=== PATIENT | female | born 1940 ===

== ENCOUNTER 2020-07-08 16:02 | Outpatient (CLI) | payer MEDICARE, SELFPAY ==
--- NOTE | ~2020-07-08 | MM_ITS ---
EXAMINATION: MM screening cammy RT w rojelio HISTORY: Screening right mammogram, history of left mastectomy TECHNIQUE: Craniocaudal and mediolateral oblique 3-D tomosynthesis images were obtained and synthetic 2-D images were generated. CAD analysis was submitted and interpreted. COMPARISON: 06/18/2019, 06/07/2018, 04/15/2017 BREAST PARENCHYMAL COMPOSITION: The breasts are heterogeneously dense, which may obscure small masses . FINDINGS: Scattered benign-appearing calcifications are present. There is no evidence of suspicious m ass, calcification, or architectural distortion to suggest malignancy. There has been no suspicious i nterval change. IMPRESSION: 1. No mammographic evidence of malignancy. 2. Recommend routine screening mammography in one year. BI-RADS Category 2: Benign finding(s). Reviewed, dictated and finalized at location A. 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
== END 2020-07-08 16:03 | disposition home or self-care (01) ==
LOC: ANHIMG 16:08
PROVIDERS: PCP Internal Medicine; Visit Provider Internal Medicine Medical Oncology
DX: Z12.31 Encounter for screening mammogram for malignant neoplasm of breast (principal); C50.312 Malignant neoplasm of lower-inner quadrant of left female breast; Z17.0 Estrogen receptor positive status [ER+]
CPT/HCPCS: 77063; 77067

== ENCOUNTER 2020-07-31 09:12 | Inpatient (IN) | payer MEDICARE, SELFPAY ==
[2020-07-31] VITALS (9 sets, daily range): BP systolic 107–144; BP diastolic 51–73; PULSE 69–88; RESP 13–22; TEMP 35.7–36.7; O2SAT 89–100; BMI 21.9
--- NOTE | ~2020-07-31 | CT_ITS ---
EXAMINATION: CT abdomen pelvis w con DATE: 07/31/2020 11:44 INDICATION: Lower abdominal pain and bloating. TECHNIQUE: Computed tomography (CT) of the abdomen and pelvis was performed with 100 cc Omnipaque 350 intravenous contrast. The dose-length product was 351.44 mGy-cm. Automated exposure control and iter ative reconstruction technique were employed. COMPARISON: CT dated 12/23/2013. FINDINGS: Bibasilar atelectasis. No significant pleural or pericardial effusion. Heart size is normal . The liver, spleen, pancreas, adrenal glands and left kidney are unremarkable. 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 Gallbladder is distended. There are di lated small bowel loops with areas of focal small bowel wall thickening and air-fluid levels. There a re phlegmonous changes in the right mid abdomen adjacent to the cecum. The appendix is mildly thicken ed and enhancing with no free fluid in the periappendiceal region, suspicious for acute appendicitis. There are calcifications in the appendix, consistent with appendicoliths. IMPRESSION: 1. Acute appendicitis with thickening of the adjacent cecum and small bowel, likely reactive. Dilated small bowel loops are present with air-fluid levels which may relate to ileus or partial obstruction . Reviewed, dictated and finalized at location A. R OPS PLANNER IMPRESSION: 1. Acute appendicitis with thickening of the adjacent cecum and small bowel, li maulik reactive. Dilated small bowel loops are present with air-fluid levels whic h may relate to ileus or partial obstruction.
--- NOTE | ~2020-07-31 | XR_ITS ---
XR chest 1V portable 08/01/2020 11:46 Indication: Hyponatremia Procedure: AP portable chest Comparison: 07/31/2020 Findings: Heart size normal. Bibasilar atelectasis. No focal pneumonia, edema, pleural effusion or pn eumothorax. There are calcified granulomas in the left lower lung zone. There is kady consistent w ith left axillary lymph node dissection. Impression: 1: Bibasilar atelectasis. Reviewed, dictated and finalized at location A. GRINDER Impression: 1: Bibasilar atelectasis.
--- NOTE | ~2020-07-31 | XR_ITS ---
EXAMINATION: XR chest 1V portable 07/31/2020 11:23 INDICATION: Cough PROCEDURE: AP portable chest COMPARISON: No prior studies for comparison. FINDINGS: There is focal infiltrate of the left midlung zone. The cardiomediastinal silhouette is wit hin normal limits. There are no pleural effusions. There is no pneumothorax suspected. IMPRESSION: 1: Focal infiltrate left mid lung zone which may represent atelectasis/scarring or less likely devel oping pneumonia.. Reviewed, dictated and finalized at location A. ROASTER IMPRESSION: 1: Focal infiltrate left mid lung zone which may represent atelectasis/scarrin g or less likely developing pneumonia..
--- NOTE | ~2020-07-31 | XR_ITS ---
XR barium swallow DATE: 08/03/2020 13:46 INDICATION: Dysphagia. Difficulty swallowing in the right cervical area TECHNIQUE: Fluoroscopy, rapid sequence spot radiograph and overhead radiographs during swallowing of 300 cc barium contrast material. 0.8 minutes fluoroscopy time DAP: 5.47 COMPARISON: None FINDINGS: Deglutition appears prompt and normal. No stricture, mucosal fold thickening, erosion, ulce ration or intraluminal mass lesion of the esophagus is detected. There are couple of small diverticula of the distal esophagus. Small sliding hiatal hernia. IMPRESSION: Small sliding hiatal hernia Small distal esophageal diverticula Reviewed, dictated and finalized at Location A. Reviewed, dictated and finalized at location A. MIXER ASSEMBLER
[2020-07-31 10:27] LABS: Basophils Absolute Auto 0.1 K/mm3 (0.0-0.1); Basophils Percent Auto 0.3 % (0.2-1.2); Eosinophils Percent Auto 0.1 % (0-4.4); Hematocrit 38.3 % (37.0-47.0); Hemoglobin 13.1 g/dL (12.0-15.0); Immature Granulocyte Percent A 0.5 % (0-0.5); Lymphocytes Percent Auto 4.5 % (18.3-44.2); Mean Corpuscular HGB Conc 34.2 g/dl (32-36); Mean Corpuscular Hemoglobin 29.7 pg (26-34); Mean Corpuscular Volume 86.8 fl (80-100); Monocytes Absolute Auto 0.7 K/mm3 (0.1-0.6); Monocytes Percent Auto 3.7 % (2.6-8.5); Neutrophils Percent Auto 90.9 % (45.5-73.1); Platelet Count Result 297 k/mm3 (150-375); Red Blood Count 4.41 M/mm3 (4.2-5.4); Red Cell Distribution Width 12.9 % (11.5-14.5); White Blood Count 19.8 K/mm3 (4.5-10.0)
[2020-07-31 10:43] LABS: Alanine Aminotransferase 17 U/L (4-35); Albumin Level 4.2 g/dL (3.5-5.1); Alkaline Phosphatase 101 U/L (38-126); Anion Gap 10 mmol/L (8-16); Aspartate Amino Transferase 29 U/L (14-36); Bilirubin,Total 0.8 mg/dL (0.2-1.3); Blood Urea Nitrogen 19 mg/dL (7-17); Calcium 9.7 mg/dL (8.4-10.2); Carbon Dioxide 26 mmol/L (22-30); Chloride 90 mmol/L (98-107); Estimated CRCL calculation 35 ml/min; Estimated Glomerular Filt Rate 48; Glucose 118 mg/dL (65-105); Lipase 25 U/L (23-300); Potassium 4.3 mmol/L (3.4-5.0); Sodium 126 mmol/L (137-145)
--- NOTE | 2020-07-31 11:15 | PC.NURSE ---
received report from Kellie GROSS. patient here with urinary symptoms. see initial note. alert. resting on stretcher. patient did ambulate to restroom but unable to void. Tech did straight cath. 100ml of urine out. specimen sent to lab. provider aware.
--- NOTE | 2020-07-31 11:32 | PC.NURSE ---
patient in CT now.
[2020-07-31 11:33] LABS: Add Urine Microscopic? YES; Appearance Urine Clear (Clear); Bilirubin Urine Negative (Negative); Blood Urine Negative (Negative); Color Urine Yellow (Yellow); Glucose Urine UA Negative (Negative); Hyaline Casts Urine 50+ /lpf; Ketones Urine Trace mg/dL (Negative); Leukocyte Esterase Ur Negative LEU/UL (Negative); Mucus Urine Few /lpf; Nitrate Urine Negative (Negative); Protein Urine 2+ mg/dL (Negative); RBC Urine 0-2 /hpf (0-2); Specific Grav Ur 1.021 (1.001-1.035); Squamous Epithelial Cell Urine Rare /hpf (Few); Urobilinogen Urine Negative mg/dL (<2.0); WBC Urine 0-3 /hpf
[2020-07-31] MEDS: SODIUM CHLORIDE 0.9% IV 1,000 ML 999 ML IV CONT (11:45)
[2020-07-31] MEDS: FAMOTIDINE 20 MG/2 ML VIAL IV PUSH (11:46)
[2020-07-31] MEDS: ONDANSETRON INJ 4 MG/2 ML VIAL IV PUSH (11:46)
--- NOTE | 2020-07-31 12:25 | ED.GENADULT ---
HPI - General Adult General Chief complaint: Abdominal Pain <MERLINE [place] Last Filed: 07/31/20 13:16> Stated complaint: abd pain <MERLINE [place] Last Filed: 07/31/20 13:16> Time Seen by Provider: 07/31/20 10:03 <MERLINE [place] Last Filed: 07/31/20 13:16> Source: patient <MERLINE [place] Last Filed: 07/31/20 13:16> Mode of arrival: ambulatory <MERLINE [place] Last Filed: 07/31/20 13:16> Limitations: no limitations <MERLINE [place] Last Filed: 07/31/20 13:16> History of Present Illness HPI narrative: Patient is a 80-year-old female who presents to emergency department for evaluation of abdominal pain that has been present for roughly 2 months and gradually worsened today feeling distended and increasing pain in the abdomen with nausea patient denies similar occurrence in the past injury trauma recent illness. Patient notes she had normal bowel movements yesterday and has had some difficulty urinating today <Massimo Sweeney PA-C - Last Filed: 07/31/20 13:16> Related Data Home medications: Home Medications Medication Instructions Recorded Confirmed amlodipine 10 mg PO DAILY 07/31/20 07/31/20 lisinopril 40 mg PO DAILY 07/31/20 07/31/20 nebivolol [Bystolic] 10 mg PO DAILY 07/31/20 07/31/20 <MERLINE [place] Last Filed: 07/31/20 13:16> Allergies/adverse reactions: Allergies Allergy/AdvReac Type Severity Reaction Status Date / Time No Known Allergies Allergy Unverified 11/12/13 08:16 <MERLINE [place] Last Filed: 07/31/20 13:16> Review of Systems Review of Systems: All systems reviewed & are unremarkable except as noted in HPI and below <Massimo Sweeney PA-C - Last Filed: 07/31/20 13:16> PMFSH Past Medical History Medical History: Medical History Anxiety Back pain Breast cancer HTN (hypertension) <MERLINE [place] Last Filed: 07/31/20 13:16> Surgical History Surgical History: Surgical History History of hysterectomy <MERLINE [place] Last Filed: 07/31/20 13:16> Family History Family History: Family History Other Hypertension <MERLINE [place] Last Filed: 07/31/20 13:16> Social History Social History: Social History Smoking status: Current every day smoker Alcohol intake: never <MERLINE [place] Last Filed: 07/31/20 13:16> Exam Narrative: Exam Narrative: GENERAL: Well-appearing, well-nourished, and in no acute distress. HEAD: Normocephalic, atraumatic. EYES: PERRLA and EOMI. ENT: Nares clear, no rhinorrhea or epistaxis. Mucous membranes moist. CHEST: Clear to auscultation. No respiratory distress. No wheezes rales or rhonchi HEART: Regular rate and rhythm. No murmur heard. Normal peripheral pulses. ABDOMEN: Soft, tenderness throughout the abdomen with guarding in the lower quadrants, distended EXTREMITIES: Normal range of motion. No edema. SKIN: Warm, dry, no rash. NEURO: No focal deficits. Alert and oriented x3. Cranial nerves II through XII grossly intact PSYCH: Normal mood and affect. <MERLINE Boston Last Filed: 07/31/20 13:16> Course Course Emergency Course: Patient found to have appendicitis will be sent to the OR was given fluids and medications and antibiotics in the emergency department hemodynamically stable with ABCs intact <MERLINE Boston Last Filed: 07/31/20 13:16> BANDER AND CELLOPHANER MACHINE/PA Physician Supervision For this patient encounter, I reviewed the BANDER AND CELLOPHANER MACHINE or PA documentation, treatment plan, and medical decision making; and I had [id number] time with this patient. Patient presented for 2 months of abdominal bloating and 2 days of right lower abdominal pain .
--- NOTE | 2020-07-31 13:10 | WPDANESEPP ---
Anes - Eval Pre Procedure Procedure: Laparoscopic appendectomy Date/Time: 07/31/20 13:10 Surgeon: Vic Preop Diagnosis: acute appendicitis Pre Op Diagnosis: appendicitis Patient Data Age: 80 Gender: F Height: 1.7 m Weight: 58.9 kg Last Vital Signs Temp 35.7 C L 07/31/20 09:16 Pulse 88 07/31/20 09:16 Resp 18 07/31/20 09:16 BP 144/73 H 07/31/20 09:16 Pulse Ox 98 07/31/20 09:16 Allergies Allergy/AdvReac Type Severity Reaction Status Date / Time No Known Allergies Allergy Unverified 11/12/13 08:16 Laboratory Tests 07/31/20 07/31/20 07/31/20 10:19 10:19 11:05 WBC 19.8 K/mm3 H K/mm3 (4.5-10.0) RBC 4.41 M/mm3 M/mm3 (4.2-5.4) Hgb 13.1 g/dL g/dL (12.0-15.0) Hct 38.3 % % (37.0-47.0) MCV 86.8 fl fl (80-100) MCH 29.7 pg pg (26-34) MCHC 34.2 g/dl g/dl (32-36) RDW 12.9 % % (11.5-14.5) Plt Count 297 k/mm3 k/mm3 (150-375) MPV 9.0 fl fl (7.4-10.4) Immature Gran % (Auto) 0.5 % % (0-0.5) Neut % (Auto) 90.9 % H % (45.5-73.1) Lymph % (Auto) 4.5 % L % (18.3-44.2) [place] % (Auto) 3.7 % % (2.6-8.5) Eos % (Auto) 0.1 % % (0-4.4) Baso % (Auto) 0.3 % % (0.2-1.2) Lymph # (Auto) 0.90 K/mm3 K/mm3 (0.9-3.2) [place] # (Auto) 0.7 K/mm3 H K/mm3 (0.1-0.6) Eos # (Auto) 0.0 K/mm3 K/mm3 (0-0.3) Baso # (Auto) 0.1 K/mm3 K/mm3 (0.0-0.1) Abs Immat Gran (auto) 0.10 K/mm3 H K/mm3 (0.00-0.031) Absolute Neuts (auto) 18.0 K/mm3 H K/mm3 (1.3-6.7) Absolute Nucleated RBC 0.0 K/mm3 K/mm3 (0.0-0.012) Nucleated RBC % 0.0 % % (0.0-0.2) Sodium 126 mmol/L L mmol/L (137-145) Potassium 4.3 mmol/L mmol/L (3.4-5.0) Chloride 90 mmol/L L mmol/L (98-107) Carbon Dioxide 26 mmol/L mmol/L (22-30) Anion Gap 10 mmol/L mmol/L (8-16) BUN 19 mg/dL H mg/dL (7-17) Creatinine 1.10 mg/dL H mg/dL (0.7-1.0) Estim Creat Clear Calc 35 ml/min ml/min Estimated GFR 48 L (59 - ) Glucose 118 mg/dL H mg/dL (65-105) Calcium 9.7 mg/dL mg/dL (8.4-10.2) Total Bilirubin 0.8 mg/dL mg/dL (0.2-1.3) AST 29 U/L U/L (14-36) ALT 17 U/L U/L (4-35) Alkaline Phosphatase 101 U/L U/L (38-126) Total Protein 8.0 g/dL g/dL (6.3-8.2) Albumin 4.2 g/dL g/dL (3.5-5.1) Lipase 25 U/L U/L (23-300) Urine Color Yellow (Yellow) Urine Appearance Clear (Clear) Urine pH 5.0 (5.0-9.0) Ur Specific [place] 1.021 (1.001-1.035) Urine Protein 2+ mg/dL H mg/dL (Negative) Urine Glucose (UA) Negative mg/dL mg/dL (Negative) Urine Ketones Trace mg/dL mg/dL (Negative) Ur Blood (Man) Negative (Negative) Urine Nitrate Negative (Negative) Urine Bilirubin Negative (Negative) Urine Urobilinogen Negative mg/dL mg/dL (<2.0) Leukocyte Esterase Rfl Negative MALATHI/UL MALATHI/UL (Negative) Urine RBC 0-2 /hpf /hpf (0-2) Urine WBC 0-3 /hpf /hpf Ur Squamous Epith Cells Rare /hpf /hpf (Few) Hyaline Casts 50+ /lpf H /lpf (None) Urine Mucus Few /lpf H /lpf Patient hx anesthesia problems: none Family hx anesthesia problems: none PMFSH Past Medical History Medical History (Updated 07/31/20 @ 13:14 by Leonie Lock, SAMMI) Anxiety Back pain Breast cancer HTN (hypertension) Surgical History Surgical History (Updated 07/31/20 @ 12:26 by Massimo Sweeney PA-C) History of hysterectomy Family History Family History (Updated 10/01/13 @ 08:59 by DOCTOR UNKNOWN) Other Hypertension Social History Social History (Updated 07/31/20 @
--- NOTE | 2020-07-31 13:36 | PC.NURSE ---
IV antibiotic started. c/o pain. does not really want narcotics. willing to take small dose of morphine. OR called for report. will update patient.
--- NOTE | 2020-07-31 13:40 | PM.IMHP ---
H&P: HPI History of Present Illness Date/Time: 07/31/20 13:40 Chief complaint: appendicitis Narrative: Jennifer Saldaña is a 80 year old female presenting to ED c/o 3 d h/o worsening RLQ abd pain. Pt reports pain is localized to RLQ and worse c movt. Pt reports assoc nausea and decreased appetite. Pt reports some difficulty urinating but has been having normal bowel movts. Pt also reports some chills at home. Pt reports some increased dist over last few mos. Review of Systems Constitutional: Constitutional: Denies anorexia, Denies body ache(s), Reports chills, Denies fatigue, Denies fever(s), Denies lethargy, Denies malaise, Reports poor appetite, Denies weakness, Denies weight gain and Denies weight loss Eyes: Eyes: Reports no additional eye complaints ENT: Reports system reviewed and no additional complaints, except as documented Cardiovascular: Cardiovascular: Reports no additional cardiovascular complaints Respiratory: Respiratory: Denies chest congestion, Reports cough, Denies pain with cough, Denies dyspnea, Denies dyspnea on exertion and Denies wheezing Gastrointestinal: Gastrointestinal: Reports abdominal pain, Denies belching, Reports bloating, Denies change in bowel habits, Denies constipation, Reports early satiety, Denies heartburn, Denies diarrhea, Reports nausea and Denies vomiting Genitourinary: Genitourinary: Denies hematuria, Reports urinary frequency and Denies nocturia Musculoskeletal: Musculoskeletal: Reports no additional musculoskeletal complaints Integumentary/Breasts: Skin/Breast: Reports system reviewed and no additional complaints, except as docu Neurologic: Reports system reviewed and no additional complaints, except as documented Psychiatric: Psychiatric: Reports no additional psychiatric complaints Endocrine: Endocrine: Reports no additional endocrine complaints Hematologic/Lymphatic: Hematologic/Lymphatic: Reports no additional hematologic/lymphatic complaints Allergic/Immunologic: Allergic/Immunologic: Reports no additional allergic/immunologic complaints PMFSH Past Medical History Medical History Anxiety Back pain Breast cancer HTN (hypertension) Surgical History Surgical History History of hysterectomy Family History Family History Other Hypertension Social History Social History Smoking status: Current every day smoker Alcohol intake: never Meds Home Medications and Allergies Allergies Allergy/AdvReac Type Severity Reaction Status Date / Time No Known Allergies Allergy Unverified 11/12/13 08:16 Vital Signs Vital Signs - 24 hr 07/31/20 09:16 Temperature 35.7 C L Pulse Rate 88 Respiratory Rate 18 Blood Pressure 144/73 H Pulse Oximetry 98 Exam Const: General: cooperative, comfortable, no acute distress, well developed, alert, awake and Physically active Nutritional Appearance: overweight Orientation/consciousness: patient oriented x3 Limitations: no limitations HENMT: Head: normal to inspection Ears: hearing grossly normal bilaterally General nose exam: Normal external nose present Mouth: Yes moist mucous membranes Eyes: General: appearance normal, both eyes and all related structures Pupils: Equal, round and reactive pupils present EOM: EOMs intact bilaterally Neck: Neck: normal visual inspection, full ROM and no lymphadenopathy Chest: Chest palpation & inspection: normal inspection of the chest Resp: Effort & Inspection: normal respiratory effort Auscultation: diminished lung sounds Cardio: Jugular venous distension: no JVD Rate: regular rate Rhythm: regular rhythm GI: Inspection: normal to inspection and distended GI Palp: Yes abdominal tenderness, Yes Soft to palpation, No Firmness to palpation present (GI), Yes
--- NOTE | 2020-07-31 13:46 | WPDHPUPDATE1 ---
History and Physical Update Update Date/Time: 07/31/20 13:46 History and Physical has been reviewed, including an updated exam of the patient. There are NO changes in the patient's condition. Risks, benefits, and alternatives have been discussed and questions answered. Patient agrees to proceed with procedure.
--- NOTE | 2020-07-31 13:58 | WPDANESEFPP ---
Anes - Eval Final PreProcedure Day of Procedure 07/31/20 13:58 Patient weight: normal Heart: regular rate and rhythm Lungs: clear to auscultation Airway: Mallampati scale class II Neurological: alert and oriented Last oral intake: >/= 8 hours ASA classification: III Emergent: yes Anesthetic plan: proceed Anesthesia type and monitoring: general ETT and standard monitoring Informed Consent: The patient's anesthetic plan and its attendant risks and benefits were discussed with the patient/family/POA. Questions were solicited and answers provided to the satisfaction of the patient/family/POA.
[2020-07-31] MEDS: LACTATED RINGERS 1,000 ML 30 ML IV CONT ×2 (14:00→15:17)
--- NOTE | 2020-07-31 15:12 | PM.PROC ---
Procedure Note - Detailed Date of procedure: 07/31/20 Pre-op diagnosis: appendicitis Post-op diagnosis: other (perforated appendicitis) Procedure performed: Laparoscopic appendectomy, washout of intra-abdominal abscess Description of procedure: the patient was taken to the operating room and placed in the supine position. After adequate induction of general anesthesia, the patient was prepped and draped in the normal sterile fashion. A time-out was then done to verify the patient's identity, as well as the procedure being performed. I began by making a 5 mm incision in the infraumbilical region. I then placed the [employer] to trocar into this incision to gain access into the abdominal cavity. Once done I was able to insufflate the abdomen through the trocar. Under direct visualization, I was able to place a 12 mm trocar in the left lower quadrant. There was noted to be adhesions to the lower midline as well as the right lower abdomen and pelvis. I then cleared these adhesions postop plan and sharply. Upon clearing some of the adhesions in the right pelvic region, there was noted to be a pocket of purulence. I went ahead and copiously suction and wash this area. I was then able to place a 5 mm trocar in the suprapubic space. Using very careful dissection, I was able to identify the appendix. The appendix was noted to be perforated and multiple areas. The appendix was noted to have some gangrenous changes in the midportion, as well as a large fecalith. I was able to identify the base of the appendix with the cecum. I created a window between the appendix itself in the mesoappendix. I was then able to transect the base of the appendix with the cecum using a MARC staple load. The mesoappendix was largely blood and I was able to take this down with just electrocautery. Once the appendiceal specimen was completely detached, placed in Endo pouch through the 12 mm port and removed the specimen. It will now be sent to pathology for further review. I then again copiously irrigated the cavity and no other abscess or purulence was noted. I then left a 10 Chinese drain in the right pelvis coming out through our 5 mm suprapubic port. I then closed the 12 mm port site under direct visualization with the Gonzalez cone device. The abdomen was then desufflated and the infraumbilical port was removed. Port sites were then closed with 4 O Monocryl subcuticular suture and Dermabond was placed on each wound. The patient tolerated the procedure well and was extubated in the operating room postoperatively. She will be sent to the recovery room in stable condition. Anesthesia: GETA Surgeon: Virginia Ho MD Estimated blood loss (mL): 10 Drains: Yes Packing: No Pathology: yes Complications: No immediate complications Condition: stable Disposition: PACU Findings: Perforated appendicitis with abscess
[2020-07-31] MEDS: fentaNYL CITRATE INJ (*CRX) 100 MCG/2 ML VIAL 25 MCG IV PUSH ×5 (15:38→16:03)
--- NOTE | 2020-07-31 16:59 | PC.NURSE ---
This patient, Jennifer Saldaña, was admitted to Medical Room 340-01. Patient/family oriented to hospital policies and general routines including ID bracelet, bed and alarms, visiting hours, pain management, procedures, bathroom and other care routines, personal items, smoking policy, room service/diet, and visiting hours. Information on how to activate the Rapid Response Team has been discussed. Patient/Family are encouraged to report perceived risks to care and to ask questions if they do not understand what they are told or what they should do.
[2020-07-31] MEDS: LACTATED RINGERS 1,000 ML 100 ML IV CONT (17:28)
[2020-07-31] MEDS: HYDROcodone/acetaminophen (*CRX) 5-325 MG TABLET 1 TAB PO (18:44)
[2020-07-31] MEDS: DOCUSATE SODIUM 100 MG CAPSULE PO (20:44)
[2020-07-31] MEDS: MORPHINE SULFATE (*CRX) 2 MG/ML INJ IV PUSH (20:51)
[2020-08-01 00:30] VITALS: BP 126/60; PULSE 81; RESP 16; TEMP 36.1; O2SAT 94
[2020-08-01 02:17] LABS: Anion Gap 5 mmol/L (8-16); Blood Urea Nitrogen 14 mg/dL (7-17); Calcium 8.6 mg/dL (8.4-10.2); Carbon Dioxide 25 mmol/L (22-30); Chloride 96 mmol/L (98-107); Estimated CRCL calculation 64 ml/min; Estimated Glomerular Filt Rate > 60; Glucose 148 mg/dL (65-105); Potassium 4.1 mmol/L (3.4-5.0); Sodium 126 mmol/L (137-145)
[2020-08-01 05:42] VITALS: BP 127/58; PULSE 80; RESP 16; TEMP 36.6; O2SAT 92
[2020-08-01] MEDS: MORPHINE SULFATE (*CRX) 2 MG/ML INJ IV PUSH (06:00)
[2020-08-01 06:26] LABS: Hematocrit 36.4 % (37.0-47.0); Hemoglobin 12.3 g/dL (12.0-15.0); Mean Corpuscular HGB Conc 33.8 g/dl (32-36); Mean Corpuscular Hemoglobin 29.4 pg (26-34); Mean Corpuscular Volume 86.9 fl (80-100); Mean Platelet Volume 9.5 fl (7.4-10.4); Platelet Count Result 236 k/mm3 (150-375); Red Blood Count 4.19 M/mm3 (4.2-5.4); Red Cell Distribution Width 13.2 % (11.5-14.5); White Blood Count 12.1 K/mm3 (4.5-10.0)
[2020-08-01 06:39] LABS: Anion Gap 4 mmol/L (8-16); Blood Urea Nitrogen 13 mg/dL (7-17); Calcium 8.6 mg/dL (8.4-10.2); Carbon Dioxide 27 mmol/L (22-30); Chloride 96 mmol/L (98-107); Estimated CRCL calculation 64 ml/min; Estimated Glomerular Filt Rate > 60; Glucose 117 mg/dL (65-105); Sodium 127 mmol/L (137-145)
[2020-08-01] MEDS: DOCUSATE SODIUM 100 MG CAPSULE PO ×2 (08:07→22:04)
--- NOTE | 2020-08-01 11:03 | PM.PNGS ---
Progress Note: A&P Assessment and Plan (1) Acute perforated appendicitis: Code(s): K35.32 - Acute appendicitis with perforation and localized peritonitis, without abscess Status: Acute Assessment and Plan: exam benign, leukocytosis improved, cont abx, drain (2) Hyponatremia: Code(s): E87.1 - Hypo-osmolality and hyponatremia Status: Acute Assessment and Plan: appreciate hospitalist mgmt, cont to follow (3) Urinary retention: Code(s): R33.9 - Retention of urine, unspecified Status: Acute Assessment and Plan: improved but not yet resolved, kidney fxn normal Subjective Subjective Date/Time Seen: 08/01/20 11:03 feels ok, c/o RLQ soreness, although pressure resolved, still c/o urinary retention Review of Systems Review of Systems: All systems reviewed & are unremarkable except as noted in HPI and below Exam Const: General: comfortable and no acute distress Resp: Effort & Inspection: normal respiratory effort Auscultation: clear to auscultation bilaterally Cardio: Rate: regular rate Rhythm: regular rhythm GI: Inspection: normal to inspection, distended and incision GI Palp: Yes abdominal tenderness Other: S, sl dist, enrrique TTP, incisions C/D/I, EULOGIO c serous output Objective Data Vital Signs Vital Signs: Vital Signs - 24 hr 07/31/20 15:17 07/31/20 15:32 07/31/20 15:47 Temperature 36.4 C L Pulse Rate 83 72 71 Respiratory Rate 22 H 18 13 Blood Pressure 123/54 L 125/51 L 107/56 L Pulse Oximetry 100 100 93 07/31/20 16:02 07/31/20 16:15 07/31/20 16:29 Temperature Pulse Rate 77 70 69 Respiratory Rate 14 14 14 Blood Pressure 116/57 L 115/65 116/56 L Pulse Oximetry 89 L 96 93 07/31/20 17:03 07/31/20 20:46 08/01/20 00:30 Temperature 36.2 C L 36.7 C 36.1 C L Pulse Rate 80 76 81 Respiratory Rate 16 16 16 Blood Pressure 130/72 122/54 L 126/60 Pulse Oximetry 97 95 94 08/01/20 05:42 Temperature 36.6 C Pulse Rate 80 Respiratory Rate 16 Blood Pressure 127/58 L Pulse Oximetry 92 Intake/Output Intake/Output: Intake & Output 07/29/20 07/30/20 07/31/20 08/01/20 23:59 23:59 23:59 23:59 Intake Total 2120 1440 Output Total 170 350 Balance 1950 1090 Meds/Results Medications: Active Medications Generic Name Dose Route Start Last Admin Trade Name Freq PRN Reason Stop Dose Admin Acetaminophen 650 mg 07/31/20 16:35 Acetaminophen 325 Mg Tablet PO Q6H PRN Mild Pain (1-3) or Fever Hydrocodone Bitart/Acetaminophen 1 tab 07/31/20 16:35 07/31/20 18:44 Hydrocodone/Acetaminophen (*Crx) 5-325 Mg Tablet PO 1 tab Q6H PRN Administration Pain Rated 4-6 Docusate Sodium 100 mg 07/31/20 21:00 08/01/20 08:07 Docusate Sodium 100 Mg Capsule PO 100 mg Q12HR ONEIL Administration Piperacillin/Tazobactam/Dextrose 3.375 gm in 50 mls @ 100 mls/hr 07/31/20 18:00 08/01/20 06:37 Zosyn 3.375 Gm/D5w 50ml Pm IVPB Infused Q6HR ONEIL Infusion Sodium Chloride 1,000 mls @ 100 mls/hr 08/01/20 10:15 Normal Saline Iv IV CONT .Q10H ONEIL Morphine Sulfate 2 mg 07/31/20 16:35 08/01/20 06:00 Morphine Sulfate (*Crx) 2 Mg/Ml Inj IV PUSH 2 mg Q4H PRN Administration Pain Rated 7-10 Nebivolol 10 mg 08/01/20 10:15 Nebivolol Hcl 5 Mg Tablet PO DAILY ONEIL Ondansetron HCl 4 mg 07/31/20 15:20 Ondansetron Inj 4 Mg/2 Ml Vial IV PUSH Q4H PRN Nausea And Vomiting Radiology Results: ITS Impressions Chest X-Ray 07/31/20 11:24 IMPRESSION: 1: Focal infiltrate left mid lung zone which may represent atelectasis/scarring or less likely developing pneumonia.. Abdomen/Pelvis CT 07/31/20 11:55 IMPRESSION: 1. Acute appendicitis with thickening of the adjacent cecum and small bowel, likely reactive. Dilated small bowel loops are present with air-fluid levels which may relate to ileus or partial obstruction. Labs Labs: Laboratory Results - last 24 hr
[2020-08-01] MEDS: SODIUM CHLORIDE 0.9% IV 1,000 ML 100 ML IV CONT ×2 (11:23→22:05)
[2020-08-01 11:28] VITALS: PULSE 76
[2020-08-01] MEDS: NEBIVOLOL HCL 5 MG TABLET 10 MG PO (11:28)
--- NOTE | 2020-08-01 12:54 | WPDANESPN ---
Anes - Prog Note Post-Op Date/Time: 08/01/20 12:54 Cardiovascular status: normal Respiratory status: normal Airway patency: baseline Mental status: baseline Post-Op hydration status: normal Vital Signs: Last Vital Signs Temp 36.6 C 08/01/20 05:42 Pulse 76 08/01/20 11:28 Resp 16 08/01/20 05:42 BP 127/58 L 08/01/20 05:42 Pulse Ox 92 08/01/20 05:42 Pain Score (VAS): 0 I/O: Intake & Output 07/31/20 08/01/20 08/01/20 23:59 07:59 15:59 Intake Total 970 1200 290 Output Total 30 80 270 Balance 940 1120 20 Laboratory Tests 08/01/20 05:30 08/01/20 05:30 08/01/20 08/01/20 08/01/20 01:54 05:30 05:30 WBC 12.1 H RBC 4.19 L Hgb 12.3 Hct 36.4 L MCV 86.9 MCH 29.4 MCHC 33.8 RDW 13.2 Plt Count 236 MPV 9.5 Sodium 126 L 127 L Potassium 4.1 4.0 Chloride 96 L 96 L Carbon Dioxide 25 27 Anion Gap 5 L 4 L BUN 14 D 13 Creatinine 0.60 L 0.60 L Estim Creat Clear Calc 64 64 Estimated GFR > 60 > 60 Glucose 148 H 117 H Calcium 8.6 8.6 Post-procedural complaints: none Patient Feedback: Patient satisfied with anesthetic care.
--- NOTE | 2020-08-01 13:11 | PM.IMCN ---
Assessment and Plan Assessment and plan (1) Acute perforated appendicitis: Code(s): K35.32 - Acute appendicitis with perforation and localized peritonitis, without abscess Status: Acute Assessment and Plan: Postop day 1. Appendectomy and abdominal washout. Continue Zosyn for surgery, WBC is falling (2) Hyponatremia: Code(s): E87.1 - Hypo-osmolality and hyponatremia Status: Acute Assessment and Plan: With dry mouth and low chloride suspect at least partially due to intravascular volume depletion and hypovolemia.. With abdominal pain and now pain medication could be some component of SIADH also. Will continue saline infusion now, check TSH and urine sodium. (3) HTN (hypertension): Code(s): I10 - Essential (primary) hypertension Status: Acute Assessment and Plan: Pressure has been normal to low and will resume beta-gabriel only at present time and and the calcium channel gabriel and TESS-inhibitor as needed (4) Urinary retention: Code(s): R33.9 - Retention of urine, unspecified Status: Acute Assessment and Plan: Postvoid residual only about 120 mL. By bladder scan. Continue to monitor after hydration (5) DVT prophylaxis: Code(s): Z29.9 - Encounter for prophylactic measures, unspecified Status: Acute Assessment and Plan: Lovenox added HPI Data of Consult Consult date: 08/01/20 Requesting Physician: Virginia Ho MD Primary Care Provider: Bennett Palacios, Consult Narrative Narrative: Date of visit 08/01 945 Jennifer Saldaña is a 80 year old hypertensive female presented to the emergency room with complaints at least 3 days duration which had worsened accompanied by the sensation she was not emptying her bladder. She had lower abdominal pain on palpation in CT scan revealed acute appendicitis. She was taken to the OR where perforated appendix was found with localized peritonitis but no abscess. Appendectomy was performed with washout and patient started on antibiotics. She feels much better today obviously sore but not the pain she had before. She has had hypertension for over 10 years and presented with hyponatremia and we were called to evaluate her for this problem. She has record of blood work she had 2 weeks ago with her oncologist revealing a normal sodium 138 Review of Systems Review of Systems: Narrative: Constitutional weight has been steady appetite fair prior to the present illness and no change in weight Eyes no double vision no scotoma Mouth now dry but no pharyngitis laryngitis Pulmonary no shortness breath wheezing or cough CV no chest pain palpitation or pedal edema GI had bowel movement yesterday no melena no hematochezia and last colonoscope over 10 years ago probable states she has feel like she is having trouble voiding but no dysuria or hematuria Muscle skeletal no particular joint discomfort Integument no skin breakdown rashes Neuropsych no seizures no syncope PMFSH Past Medical History Medical History (Updated 08/01/20 @ 13:18 by Huy Campos MD) Anxiety Back pain Breast cancer HTN (hypertension) Surgical History Surgical History (Updated 08/01/20 @ 13:18 by Huy Campos MD) History of hysterectomy Status post left mastectomy Family History Family History (Updated 08/01/20 @ 13:19 by Huy Campos MD) Father Hypertension Mother No problems noted. 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 and lives alone Two children living and well who live in the area Smoking packs per day: 0.5 Smoking cigarettes per day: 10.0 Smoking status: Current every day smoker Tobacco type: cigarettes Alcohol intake: former Substance use: never Spiritual care concerns: No Meds Home Medications and Allerg
[2020-08-01 14:00] VITALS: BP 135/57; PULSE 75; RESP 18; TEMP 35.8; O2SAT 95
[2020-08-01 14:49] LABS: Sodium Urine Random 11 meq/L
[2020-08-01 14:53] LABS: Creatinine Urine 120.2 mg/dL; Total Protein Urine Random 51 mg/dL; Ur Ttl Prot Creatinine Ratio 0.42 mg/mg (0-0.20)
[2020-08-01] MEDS: HYDROcodone/acetaminophen (*CRX) 5-325 MG TABLET 1 TAB PO (16:00)
--- NOTE | 2020-08-01 17:55 | PM.CNNEP ---
Assessment and Plan Assessment and plan (1) Hyponatremia: Code(s): E87.1 - Hypo-osmolality and hyponatremia Status: Acute Assessment and Plan: apparently acute as labs 2 weeks ago with normal sodium level however, from reviewing her history, she has had sodium levels as low as 132 - 135 since 2013 urine electrolytes are prerenal which would suggest hypovolemic hyponatremia - history and exam support this as well however, given pain issues and need for pain meds, this may be a contributing factor I agree with normal saline IVFs for now check TSH, cortisol, serum/urine osmolality, SPEP, and UPEP follow trend of repeat sodiums (2) Acute perforated appendicitis: Code(s): K35.32 - Acute appendicitis with perforation and localized peritonitis, without abscess Status: Acute Assessment and Plan: s/p surgical intervention Surgery following (3) HTN (hypertension): Code(s): I10 - Essential (primary) hypertension Status: Acute Assessment and Plan: reasonable control follow trend of hemodynamics Will continue to follow. History of Present Illness Reason for Consult Consult date: 08/01/20 Reason for consult: hyponatremia Chief Complaint Chief complaint: appendicitis History of Present Illness Narrative: The patient is a 80 year old female who presented to [facility] emergency room with complaints abdominal pain. She relates the pain was worse in the last 3 days associated by the sensation she was not emptying her bladder. Subsequent work-up and evaluation in the ER demonstrated a CT scan that revealed acute appendicitis. She was taken to the OR where perforated appendix was found with localized peritonitis but no abscess. Appendectomy was performed with washout and patient started on antibiotics. It was also noted that her sodium level was low on admission and remains low by her most recent blood work. She reported had a sodium level of 138 by outpatient labs approximately 2 weeks ago. Renal consultation was requested for further evaluation of her hyponatremia. Review of Systems Review of Systems: Narrative: As per HPI. [facility] Past Medical History Medical History (Updated 08/01/20 @ 13:18 by Huy Campos MD) Anxiety Back pain Breast cancer HTN (hypertension) Surgical History Surgical History (Updated 08/01/20 @ 13:18 by Huy Campos MD) History of hysterectomy Status post left mastectomy Family History Family History (Updated 08/01/20 @ 13:19 by Huy Campos MD) Father Hypertension Mother No problems noted. 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 Two children living and well who live in the area Smoking packs per day: 0.5 Smoking cigarettes per day: 10.0 Smoking status: Current every day smoker Tobacco type: cigarettes Alcohol intake: former Substance use: never Spiritual care concerns: No Meds Home Medications and Allergies Home Medications Medication Instructions Recorded Confirmed Type amlodipine 10 mg PO DAILY 07/31/20 07/31/20 History lisinopril 40 mg PO DAILY 07/31/20 07/31/20 History nebivolol [Bystolic] 10 mg PO DAILY 07/31/20 07/31/20 History Allergies Allergy/AdvReac Type Severity Reaction Status Date / Time No Known Allergies Allergy Verified 07/31/20 17:08 Vital Signs Vital Signs Temp Pulse Resp BP Pulse Ox 08/01/20 14:00 35.8 C L 75 18 135/57 L 95 08/01/20 11:28 76 08/01/20 05:42 36.6 C 80 16 127/58 L 92 08/01/20 00:30 36.1 C L 81 16 126/60 94 07/31/20 20:46 36.7 C 76 16 122/54 L 95 Exam Narrative: Exam Narrative: GENERAL APPEARANCE: well developed well nourished female in no acute distress HEENT: normocephalic, atrauma
[2020-08-01 19:29] VITALS: BP 151/69; PULSE 76; RESP 18; TEMP 36.8; O2SAT 92
[2020-08-01] MEDS: ENOXAPARIN 40 MG/0.4 ML SYRINGE SUB-Q (22:05)
[2020-08-02] MEDS: ONDANSETRON INJ 4 MG/2 ML VIAL IV PUSH (02:27)
[2020-08-02 05:58] LABS: Basophils Percent Auto 0.2 % (0.2-1.2); Eosinophils Percent Auto 0.3 % (0-4.4); Hemoglobin 12.1 g/dL (12.0-15.0); Immature Granulocyte Absolute 0.06 K/mm3 (0.00-0.031); Immature Granulocyte Percent A 0.5 % (0-0.5); Lymphocytes Absolute Auto 0.65 K/mm3 (0.9-3.2); Lymphocytes Percent Auto 5.8 % (18.3-44.2); Mean Corpuscular HGB Conc 34.6 g/dl (32-36); Mean Corpuscular Hemoglobin 29.4 pg (26-34); Mean Corpuscular Volume 85.2 fl (80-100); Mean Platelet Volume 9.6 fl (7.4-10.4); Monocytes Absolute Auto 0.4 K/mm3 (0.1-0.6); Monocytes Percent Auto 3.4 % (2.6-8.5); Neutrophils Absolute Auto 10.2 K/mm3 (1.3-6.7); Neutrophils Percent Auto 89.8 % (45.5-73.1); Platelet Count Result 280 k/mm3 (150-375); Red Blood Count 4.11 M/mm3 (4.2-5.4); Red Cell Distribution Width 12.9 % (11.5-14.5); White Blood Count 11.3 K/mm3 (4.5-10.0)
[2020-08-02 06:07] LABS: Anion Gap 4 mmol/L (8-16); Blood Urea Nitrogen 12 mg/dL (7-17); Calcium 8.3 mg/dL (8.4-10.2); Carbon Dioxide 27 mmol/L (22-30); Chloride 96 mmol/L (98-107); Estimated CRCL calculation 75 ml/min; Estimated Glomerular Filt Rate > 60; Glucose 113 mg/dL (65-105); Potassium 3.9 mmol/L (3.4-5.0); Sodium 127 mmol/L (137-145)
[2020-08-02] MEDS: SODIUM CHLORIDE 0.9% IV 1,000 ML 100 ML IV CONT ×2 (08:07→17:30)
[2020-08-02] MEDS: DOCUSATE SODIUM 100 MG CAPSULE PO ×2 (08:07→19:59)
[2020-08-02] MEDS: amLODIPine BESYLATE 5 MG TABLET 10 MG PO (08:07)
[2020-08-02 08:08] VITALS: PULSE 76
[2020-08-02] MEDS: NEBIVOLOL HCL 5 MG TABLET 10 MG PO (08:08)
--- NOTE | 2020-08-02 12:58 | PM.PNGS ---
Progress Note: A&P Assessment and Plan (1) Acute perforated appendicitis: Code(s): K35.32 - Acute appendicitis with perforation and localized peritonitis, without abscess Status: Acute Assessment and Plan: Continues to clinically improve. WBC trending down. Continue IV antibiotics and monitor EULOGIO drain. Will initiate Miralax. Encouraged her to sit up to chair for meals and ambulate in the halls. May need to dial back on her diet if nausea persists or she starts vomiting. (2) Hyponatremia: Code(s): E87.1 - Hypo-osmolality and hyponatremia Status: Acute Assessment and Plan: Sodium 127 today. IV fluids going. Appreciate Hospitalist and Nephrology's help. (3) Urinary retention: Code(s): R33.9 - Retention of urine, unspecified Status: Acute Assessment and Plan: Improved. Bladder scan today was 200 per the nurse. Still able to urinate. Management per Hospitalist. Additional Plan Discussed plan of care with Dr. Ho. Subjective Subjective Date/Time Seen: 08/02/20 11:00 Post Op day: 2 (lap appy with washout of intraabdominal abscess) Patient reports: still having pain, no flatus, no bowel movement and nausea (intermittent with standing) Interval history: Patient seen this morning and reports feeling bloated and nauseated. She denies flatus or BM since surgery. Abdominal pain about the same as yesterday but controlled with analgesics. Has not walked the halls, only walked to the bathroom. Reports lots of belching. No other complaints. Review of Systems Review of Systems: All systems reviewed & are unremarkable except as noted in HPI and below Constitutional: Constitutional: Reports chills and Denies fever(s) Exam Const: General: comfortable, no acute distress, alert and awake Orientation/consciousness: patient oriented x3 Resp: Auscultation: wheezes expiratory wheezes and throughout Cardio: Rate: regular rate Rhythm: regular rhythm GI: Inspection: distended, incision (clean and dry, glue intact) and other (suprapubic EULOGIO drain with serosanguineous drainage) GI Palp: Yes Soft to palpation, Yes Tenderness to palpation present (GI) (diffusely tender), No Guarding due to palpation present (GI) and No Rebound tenderness present Auscultation: Hypoactive bowel sounds present Skin: General skin exam: normal color Neuro: General: patient oriented x3, moves all extremities and no focal motor deficits Extrem: General: normal to inspection, full ROM, no clubbing, cyanosis or edema and no calf tenderness Psych: Appearance: grossly normal Speech and movement: Normal speech and movement present Insight: Good insight present (Psych) Judgement: Good judgement present (Psych) Objective Data Vital Signs Vital Signs: Vital Signs - 24 hr 08/01/20 14:00 08/01/20 19:29 08/02/20 08:08 Temperature 96.5 F L 98.3 F Pulse Rate 75 76 76 Respiratory Rate 18 18 Blood Pressure 135/57 L 151/69 H Pulse Oximetry 95 92 Intake/Output Intake/Output: Intake & Output 07/30/20 07/31/20 08/01/20 08/02/20 23:59 23:59 23:59 23:59 Intake Total 2120 3960 1440 Output Total 170 740 630 Balance 1950 3220 810 Meds/Results Medications: Active Medications Generic Name Dose Route Start Last Admin Trade Name Freq PRN Reason Stop Dose Admin Acetaminophen 650 mg 07/31/20 16:35 Acetaminophen 325 Mg Tablet PO Q6H PRN Mild Pain (1-3) or Fever Hydrocodone Bitart/Acetaminophen 1 tab 07/31/20 16:35 08/01/20 16:00 Hydrocodone/Acetaminophen (*Crx) 5-325 Mg Tablet PO 1 tab Q6H PRN Administration Pain Rated 4-6 Amlodipine Besylate 10 mg 08/02/20 09:00 08/02/20 08:07 Amlodipine Besylate 5 Mg Tablet PO 10 mg QAM ONEIL Administration Docusate Sodium 100 mg 07/31/20 21:00 08/02/20 08:07 Docusate Sodium 100 Mg Capsule PO 100 mg Q12HR ONEIL Administration Enoxaparin Sodium 40 mg 08/01/20 21:00 08/01/20 22:05 Enoxaparin 40 Mg/0.4 Ml Syringe
[2020-08-02] MEDS: polyethylene glycoL 3350 17 GM POWD.PACK PO (13:41)
[2020-08-02 14:33] VITALS: BP 138/68; PULSE 72; RESP 16; TEMP 35.7; O2SAT 94
--- NOTE | 2020-08-02 16:30 | PM.IMPN ---
Progress Note: A&P Assessment and Plan (1) Acute perforated appendicitis: Code(s): K35.32 - Acute appendicitis with perforation and localized peritonitis, without abscess Status: Acute Assessment and Plan: Postop day 2. Appendectomy and abdominal washout. Continue Zosyn per surgery, WBC continues to fall (2) Hyponatremia: Code(s): E87.1 - Hypo-osmolality and hyponatremia Status: Acute Assessment and Plan: With dry mouth and low chloride suspect at least partially due to intravascular volume depletion and hypovolemia.. Urine sodium low at 11 and expected sodium to rise with normal saline but did not. With abdominal pain and now pain medication could be some component of SIADH also. Will continue saline infusion now, discussed with nephrology and they agree (3) HTN (hypertension): Code(s): I10 - Essential (primary) hypertension Status: Acute Assessment and Plan: Pressure has been normal and resumed beta-gabriel 08/01 and resumed amlodipine today. TESS-inhibitor still on hold (4) Urinary retention: Code(s): R33.9 - Retention of urine, unspecified Status: Acute Assessment and Plan: Postvoid residual only about 200 mL today.by bladder scan. Continue to monitor, UA benign (5) DVT prophylaxis: Code(s): Z29.9 - Encounter for prophylactic measures, unspecified Status: Acute Assessment and Plan: Lovenox Subjective Date/time seen: 08/02/20 16:30 Interval history: Date of visit 08/02. 80-year-old hypertensive female status post appendectomy for ruptured appendix with localized peritonitis feeling better but still feels bloated and no bowel movement yet. Urinating more freely. We are seeing her for hyponatremia Exam Narrative: Exam Narrative: Blood pressure 138/68 pulse 72 and regular she is afebrile Pupils equal reactive light sclera anicteric Mouth normal mucosa is dry Neck supple no adenopathy thyromegaly carotid bruits Lungs clear CV regular rate rhythm no murmurs or gallops Abdomen is soft , bowel sounds minimal today and did not remove bandage, drain in place, Extremities without edema, dorsalis pedis posterior tibial 2+ and symmetrical Neuro alert pleasant cooperative cranial nerves 2-12 are intact no focal neurological deficits Objective Data Vital Signs Vital Signs: Vital Signs - 24 hr 08/01/20 19:29 08/02/20 08:08 08/02/20 14:33 Temperature 36.8 C 35.7 C L Pulse Rate 76 76 72 Respiratory Rate 18 16 Blood Pressure 151/69 H 138/68 Pulse Oximetry 92 94 Intake/Output Intake/Output: Intake & Output 07/30/20 07/31/20 08/01/20 08/02/20 23:59 23:59 23:59 23:59 Intake Total 2120 3960 1490 Output Total 966 671 8265 Balance 1950 3220 90 Meds/Results Medications: Active Medications Generic Name Dose Route Start Last Admin Trade Name Freq PRN Reason Stop Dose Admin Acetaminophen 650 mg 07/31/20 16:35 Acetaminophen 325 Mg Tablet PO Q6H PRN Mild Pain (1-3) or Fever Hydrocodone Bitart/Acetaminophen 1 tab 07/31/20 16:35 08/01/20 16:00 Hydrocodone/Acetaminophen (*Crx) 5-325 Mg Tablet PO 1 tab Q6H PRN Administration Pain Rated 4-6 Amlodipine Besylate 10 mg 08/02/20 09:00 08/02/20 08:07 Amlodipine Besylate 5 Mg Tablet PO 10 mg QAM ONEIL Administration Docusate Sodium 100 mg 07/31/20 21:00 08/02/20 08:07 Docusate Sodium 100 Mg Capsule PO 100 mg Q12HR ONEIL Administration Enoxaparin Sodium 40 mg 08/01/20 21:00 08/01/20 22:05 Enoxaparin 40 Mg/0.4 Ml Syringe SUB-Q 40 mg HS ONEIL Administration Piperacillin/Tazobactam/Dextrose 3.375 gm in 50 mls @ 100 mls/hr 07/31/20 18:00 08/02/20 13:16 Zosyn 3.375 Gm/D5w 50ml Pm IVPB Infused Q6HR ONEIL Infusion Sodium Chloride 1,000 mls @ 100 mls/hr 08/01/20 10:15 08/02/20 08:07 Normal Saline Iv IV CONT 100 mls/hr .Q10H ONEIL Administration Morphine Sulfate 2 mg 07/31/20 16:35 08/01/20 06:00
--- NOTE | 2020-08-02 18:22 | PM.PNNEP ---
Progress Note: A&P Assessment and Plan (1) Hyponatremia: Code(s): E87.1 - Hypo-osmolality and hyponatremia Status: Acute Assessment and Plan: apparently acute issue as labs 2 weeks ago with normal sodium level however, from reviewing her history, she has had sodium levels as low as 132 - 135 since 2013 urine electrolytes are prerenal which would suggest hypovolemic hyponatremia - history and exam support this as well however, given pain issues and need for pain meds, this may be a contributing factor TSH,and cortisol okay; serum/urine osmolality, SPEP, and UPEP still pending sodium has failed to correct with normal saline IVFs already fluid restricted by limited oral intake and hesitant to give salt tabs +/- loop diuretics at this time follow repeat sodium levels (2) Acute perforated appendicitis: Code(s): K35.32 - Acute appendicitis with perforation and localized peritonitis, without abscess Status: Acute Assessment and Plan: s/p surgical intervention Surgery following (3) HTN (hypertension): Code(s): I10 - Essential (primary) hypertension Status: Acute Assessment and Plan: reasonable control follow trend of hemodynamics Will continue to follow. Subjective Date/time seen: 08/02/20 18:22 No acute distress but has a sense of bloating that makes her not want to eat or drink anything; mentation is stable; no other acute complaints voiced; no events overnight or this AM. Exam Narrative: Exam Narrative: General: WD/WN female in NAD Heart: normal S1 and S2; no rub Lungs: clear to auscultation Abdomen: soft, nontender, nondistended, positive bowel sounds Extremities: no cyanosis or clubbing; no edema Skin: warm and dry Objective Data Vital Signs Vital Signs: Vital Signs Temp Pulse Resp BP Pulse Ox 08/02/20 14:33 35.7 C L 72 16 138/68 94 08/02/20 08:08 76 08/01/20 19:29 36.8 C 76 18 151/69 H 92 Intake/Output Intake/Output: Intake & Output 07/30/20 07/31/20 08/01/20 08/02/20 23:59 23:59 23:59 23:59 Intake Total 2120 3960 2970 Output Total 886 558 1612 Balance 1950 3220 1470 Meds/Results Medications: Active Medications Generic Name Dose Route Start Last Admin Trade Name Freq PRN Reason Stop Dose Admin Acetaminophen 650 mg 07/31/20 16:35 Acetaminophen 325 Mg Tablet PO Q6H PRN Mild Pain (1-3) or Fever Hydrocodone Bitart/Acetaminophen 1 tab 07/31/20 16:35 08/01/20 16:00 Hydrocodone/Acetaminophen (*Crx) 5-325 Mg Tablet PO 1 tab Q6H PRN Administration Pain Rated 4-6 Amlodipine Besylate 10 mg 08/02/20 09:00 08/02/20 08:07 Amlodipine Besylate 5 Mg Tablet PO 10 mg QAM ONEIL Administration Docusate Sodium 100 mg 07/31/20 21:00 08/02/20 08:07 Docusate Sodium 100 Mg Capsule PO 100 mg Q12HR ONEIL Administration Enoxaparin Sodium 40 mg 08/01/20 21:00 08/01/20 22:05 Enoxaparin 40 Mg/0.4 Ml Syringe SUB-Q 40 mg HS ONEIL Administration Piperacillin/Tazobactam/Dextrose 3.375 gm in 50 mls @ 100 mls/hr 07/31/20 18:00 08/02/20 17:30 Zosyn 3.375 Gm/D5w 50ml Pm IVPB 100 mls/hr Q6HR ONEIL Administration Sodium Chloride 1,000 mls @ 100 mls/hr 08/01/20 10:15 08/02/20 17:30 Normal Saline Iv IV CONT 100 mls/hr .Q10H ONEIL Administration Morphine Sulfate 2 mg 07/31/20 16:35 08/01/20 06:00 Morphine Sulfate (*Crx) 2 Mg/Ml Inj IV PUSH 2 mg Q4H PRN Administration Pain Rated 7-10 Nebivolol 10 mg 08/01/20 10:15 08/02/20 08:08 Nebivolol Hcl 5 Mg Tablet PO 10 mg DAILY ONEIL Administration Ondansetron HCl 4 mg 07/31/20 15:20 08/02/20 02:27 Ondansetron Inj 4 Mg/2 Ml Vial IV PUSH 4 mg Q4H PRN Administration Nausea And Vomiting Polyethylene Glycol 17 gm 08/02/20 13:12 08/02/20 13:41 Polyethylene Glycol 3350 17 Gm Powd.Pack PO 17 gm QAM ONEIL Administration Radiology Results: ITS Impression
[2020-08-02] MEDS: ACETAMINOPHEN 325 MG TABLET 650 MG PO (19:58)
[2020-08-02] MEDS: ENOXAPARIN 40 MG/0.4 ML SYRINGE SUB-Q (19:59)
[2020-08-02 20:02] VITALS: BP 142/63; PULSE 70; RESP 16; TEMP 36.6; O2SAT 91
[2020-08-03] MEDS: HYDROcodone/acetaminophen (*CRX) 5-325 MG TABLET 1 TAB PO (00:35)
[2020-08-03] MEDS: MORPHINE SULFATE (*CRX) 2 MG/ML INJ IV PUSH (03:24)
[2020-08-03 06:00] VITALS: BP 148/63; PULSE 70; RESP 17; TEMP 36.3; O2SAT 93
[2020-08-03 06:13] LABS: Basophils Percent Auto 0.2 % (0.2-1.2); Eosinophils Absolute Auto 0.1 K/mm3 (0-0.3); Eosinophils Percent Auto 0.5 % (0-4.4); Hematocrit 35.6 % (37.0-47.0); Immature Granulocyte Absolute 0.07 K/mm3 (0.00-0.031); Immature Granulocyte Percent A 0.7 % (0-0.5); Lymphocytes Absolute Auto 0.96 K/mm3 (0.9-3.2); Lymphocytes Percent Auto 9.5 % (18.3-44.2); Mean Corpuscular HGB Conc 33.7 g/dl (32-36); Mean Corpuscular Hemoglobin 29.1 pg (26-34); Mean Corpuscular Volume 86.4 fl (80-100); Mean Platelet Volume 9.1 fl (7.4-10.4); Monocytes Absolute Auto 0.6 K/mm3 (0.1-0.6); Monocytes Percent Auto 5.8 % (2.6-8.5); Neutrophils Absolute Auto 8.4 K/mm3 (1.3-6.7); Neutrophils Percent Auto 83.3 % (45.5-73.1); Platelet Count Result 318 k/mm3 (150-375); Red Blood Count 4.12 M/mm3 (4.2-5.4); Red Cell Distribution Width 12.8 % (11.5-14.5); White Blood Count 10.1 K/mm3 (4.5-10.0)
[2020-08-03 06:51] LABS: Anion Gap 4 mmol/L (8-16); Blood Urea Nitrogen 11 mg/dL (7-17); Calcium 8.2 mg/dL (8.4-10.2); Carbon Dioxide 26 mmol/L (22-30); Chloride 96 mmol/L (98-107); Estimated CRCL calculation 75 ml/min; Estimated Glomerular Filt Rate > 60; Glucose 97 mg/dL (65-105); Potassium 3.1 mmol/L (3.4-5.0); Sodium 126 mmol/L (137-145)
[2020-08-03] MEDS: amLODIPine BESYLATE 5 MG TABLET 10 MG PO (08:08)
[2020-08-03] MEDS: DOCUSATE SODIUM 100 MG CAPSULE PO ×2 (08:08→20:57)
[2020-08-03] MEDS: POTASSIUM CHLORIDE 20 MEQ TABLET 40 MEQ PO (08:08)
[2020-08-03] MEDS: polyethylene glycoL 3350 17 GM POWD.PACK PO (08:08)
[2020-08-03 08:13] VITALS: PULSE 62
[2020-08-03] MEDS: NEBIVOLOL HCL 5 MG TABLET 10 MG PO (08:13)
--- NOTE | 2020-08-03 09:40 | PM.PNNEP ---
Progress Note: A&P Assessment and Plan (1) Hyponatremia: Code(s): E87.1 - Hypo-osmolality and hyponatremia Status: Acute Assessment and Plan: reportedly an acute issue as labs 2 weeks ago with normal sodium level however, from reviewing her history, she has had sodium levels as low as 132 - 135 since 2013 urine electrolytes are prerenal which would suggest hypovolemic hyponatremia - history and exam support this as well however, given pain issues and need for pain meds, this may be a contributing factor to her low sodium level (SIADH picture) TSH and cortisol okay; CXR without tumors/massess...etc; serum/urine osmolality, SPEP, and UPEP still pending sodium has failed to correct with normal saline IVFs already fluid restricted by limited oral intake and hesitant to give salt tabs +/- loop diuretics at this time follow repeat sodium levels (2) Acute perforated appendicitis: Code(s): K35.32 - Acute appendicitis with perforation and localized peritonitis, without abscess Status: Acute Assessment and Plan: s/p surgical intervention Surgery following (3) HTN (hypertension): Code(s): I10 - Essential (primary) hypertension Status: Acute Assessment and Plan: reasonable control follow trend of hemodynamics Will continue to follow. Subjective Date/time seen: 08/03/20 09:40 Fullness and bloating sensation appears to be doing better; no apparent issues/events overnight or earlier this AM; seems to be slowly improving. Exam Narrative: Exam Narrative: General: WD/WN female in NAD Heart: normal S1 and S2; no rub Lungs: clear to auscultation Abdomen: soft, with some TTP present; positive bowel sounds Extremities: no cyanosis or clubbing; no edema Skin: warm and intact Objective Data Vital Signs Vital Signs: Vital Signs Temp Pulse Resp BP Pulse Ox 08/03/20 08:13 62 08/03/20 06:00 36.3 C L 70 17 148/63 H 93 08/02/20 20:02 36.6 C 70 16 142/63 H 91 08/02/20 14:33 35.7 C L 72 16 138/68 94 Intake/Output Intake/Output: Intake & Output 07/31/20 08/01/20 08/02/20 08/03/20 23:59 23:59 23:59 23:59 Intake Total 2120 3960 3020 300 Output Total 071 101 4381 755 Balance 1950 3220 1520 -416 Meds/Results Medications: Active Medications Generic Name Dose Route Start Last Admin Trade Name Freq PRN Reason Stop Dose Admin Acetaminophen 650 mg 07/31/20 16:35 08/02/20 19:58 Acetaminophen 325 Mg Tablet PO 650 mg Q6H PRN Administration Mild Pain (1-3) or Fever Hydrocodone Bitart/Acetaminophen 1 tab 07/31/20 16:35 08/03/20 00:35 Hydrocodone/Acetaminophen (*Crx) 5-325 Mg Tablet PO 1 tab Q6H PRN Administration Pain Rated 4-6 Amlodipine Besylate 10 mg 08/02/20 09:00 08/03/20 08:08 Amlodipine Besylate 5 Mg Tablet PO 10 mg QAM ONEIL Administration Docusate Sodium 100 mg 07/31/20 21:00 08/03/20 08:08 Docusate Sodium 100 Mg Capsule PO 100 mg Q12HR ONEIL Administration Enoxaparin Sodium 40 mg 08/01/20 21:00 08/02/20 19:59 Enoxaparin 40 Mg/0.4 Ml Syringe SUB-Q 40 mg HS ONEIL Administration Piperacillin/Tazobactam/Dextrose 3.375 gm in 50 mls @ 100 mls/hr 07/31/20 18:00 08/03/20 05:45 Zosyn 3.375 Gm/D5w 50ml Pm IVPB Infused Q6HR ONEIL Infusion Sodium Chloride 1,000 mls @ 100 mls/hr 08/01/20 10:15 08/03/20 08:07 Normal Saline Iv IV CONT Not Given .Q10H ONEIL Morphine Sulfate 2 mg 07/31/20 16:35 08/03/20 03:24 Morphine Sulfate (*Crx) 2 Mg/Ml Inj IV PUSH 2 mg Q4H PRN Administration Pain Rated 7-10 Nebivolol 10 mg 08/01/20 10:15 08/03/20 08:13 Nebivolol Hcl 5 Mg Tablet PO 10 mg DAILY ONEIL Administration Ondansetron HCl 4 mg 07/31/20 15:20 08/02/20 02:27 Ondansetron Inj 4 Mg/2 Ml Vial IV PUSH 4 mg Q4H PRN Administration Nausea And Vomiting Polyethylene Glycol 17 gm 08/02/20 13:12 08/03/20 08:08 Polyethyle
--- NOTE | 2020-08-03 11:26 | PM.PNGS ---
Progress Note: A&P Assessment and Plan (1) Acute perforated appendicitis: Code(s): K35.32 - Acute appendicitis with perforation and localized peritonitis, without abscess Status: Acute Assessment and Plan: doing well, WBC largely normalized, remove EULOGIO prior to dc, encourage po (2) Hyponatremia: Code(s): E87.1 - Hypo-osmolality and hyponatremia Status: Acute Assessment and Plan: mgmt per nephrology (3) Dysphagia: Code(s): R13.10 - Dysphagia, unspecified Status: Acute Assessment and Plan: will get swallow study and GI consult for further eval Subjective Subjective Date/Time Seen: 08/03/20 11:26 feels ok, c/o dysphagia, +bowel movt this am Review of Systems Constitutional: Constitutional: Denies anorexia, Denies chills, Reports fatigue, Denies fever(s), Denies malaise, Denies poor appetite and Reports weakness ENT: Reports dysphagia Cardiovascular: Cardiovascular: Reports no additional cardiovascular complaints Respiratory: Respiratory: Reports no additional respiratory complaints Gastrointestinal: Gastrointestinal: Denies abdominal pain, Denies bloating, Denies change in stool character, Denies nausea and Denies vomiting Exam Const: General: cooperative, comfortable and no acute distress Resp: Effort & Inspection: normal respiratory effort Cardio: Rate: regular rate Rhythm: regular rhythm GI: Inspection: normal to inspection, non-distended and incision GI Palp: Yes abdominal tenderness Objective Data Vital Signs Vital Signs: Vital Signs - 24 hr 08/02/20 14:33 08/02/20 20:02 08/03/20 06:00 Temperature 35.7 C L 36.6 C 36.3 C L Pulse Rate 72 70 70 Respiratory Rate 16 16 17 Blood Pressure 138/68 142/63 H 148/63 H Pulse Oximetry 94 91 93 08/03/20 08:13 Temperature Pulse Rate 62 Respiratory Rate Blood Pressure Pulse Oximetry Intake/Output Intake/Output: Intake & Output 07/31/20 08/01/20 08/02/20 08/03/20 23:59 23:59 23:59 23:59 Intake Total 2120 3960 3020 420 Output Total 554 036 1942 905 Balance 1950 3220 1520 -485 Meds/Results Medications: Active Medications Generic Name Dose Route Start Last Admin Trade Name Freq PRN Reason Stop Dose Admin Acetaminophen 650 mg 07/31/20 16:35 08/02/20 19:58 Acetaminophen 325 Mg Tablet PO 650 mg Q6H PRN Administration Mild Pain (1-3) or Fever Hydrocodone Bitart/Acetaminophen 1 tab 07/31/20 16:35 08/03/20 00:35 Hydrocodone/Acetaminophen (*Crx) 5-325 Mg Tablet PO 1 tab Q6H PRN Administration Pain Rated 4-6 Amlodipine Besylate 10 mg 08/02/20 09:00 08/03/20 08:08 Amlodipine Besylate 5 Mg Tablet PO 10 mg QAM ONEIL Administration Docusate Sodium 100 mg 07/31/20 21:00 08/03/20 08:08 Docusate Sodium 100 Mg Capsule PO 100 mg Q12HR ONEIL Administration Enoxaparin Sodium 40 mg 08/01/20 21:00 08/02/20 19:59 Enoxaparin 40 Mg/0.4 Ml Syringe SUB-Q 40 mg HS ONEIL Administration Piperacillin/Tazobactam/Dextrose 3.375 gm in 50 mls @ 100 mls/hr 07/31/20 18:00 08/03/20 05:45 Zosyn 3.375 Gm/D5w 50ml Pm IVPB Infused Q6HR ONEIL Infusion Sodium Chloride 1,000 mls @ 100 mls/hr 08/01/20 10:15 08/03/20 08:07 Normal Saline Iv IV CONT Not Given .Q10H ONEIL Morphine Sulfate 2 mg 07/31/20 16:35 08/03/20 03:24 Morphine Sulfate (*Crx) 2 Mg/Ml Inj IV PUSH 2 mg Q4H PRN Administration Pain Rated 7-10 Nebivolol 10 mg 08/01/20 10:15 08/03/20 08:13 Nebivolol Hcl 5 Mg Tablet PO 10 mg DAILY ONEIL Administration Ondansetron HCl 4 mg 07/31/20 15:20 08/02/20 02:27 Ondansetron Inj 4 Mg/2 Ml Vial IV PUSH 4 mg Q4H PRN Administration Nausea And Vomiting Polyethylene Glycol 17 gm 08/02/20 13:12 08/03/20 08:08 Polyethylene Glycol 3350 17 Gm Powd.Pack PO 17 gm QAM ONEIL Administration Radiology Results: ITS Impressions Abdomen/Pelvis CT 07/31/20 11:55 IMPRESSION: 1. Acute appendicitis with
[2020-08-03] MEDS: SODIUM CHLORIDE 0.9% IV 1,000 ML 100 ML IV CONT (13:49)
[2020-08-03 14:00] VITALS: BP 148/69; PULSE 78; RESP 16; TEMP 35.7; O2SAT 92
--- NOTE | 2020-08-03 15:24 | PM.IMPN ---
Progress Note: A&P Assessment and Plan (1) Acute perforated appendicitis: Code(s): K35.32 - Acute appendicitis with perforation and localized peritonitis, without abscess Status: Acute Assessment and Plan: Patient presents with abdominal pain and found to have appendicitis with perforation and peritonitis. Postop day 3 from an appendectomy and abdominal washout. WBC 20K on admission but better at 10K now. Continue Zosyn per surgery (2) Hyponatremia: Code(s): E87.1 - Hypo-osmolality and hyponatremia Status: Acute Assessment and Plan: Suspect intravascular volume depletion and hypovolemia from clinical findings and lab evaluation. Urine sodium low at 11. Na 126 on admission and this has not changed since. Consider SIADH from pain. Continue IV fluids. Appreciate nephrology input. (3) Adynamic ileus: Code(s): K56.0 - Paralytic ileus Status: Acute Assessment and Plan: Patient with flatus and BMs. Ileus resolving. (4) HTN (hypertension): Code(s): I10 - Essential (primary) hypertension Status: Acute Assessment and Plan: Patient's blood pressure was reviewed on 08/03 Blood pressure remains well controlled. Will continue current medications. Continue Bystolic and amlodipine. TESS-inhibitor still on hold (5) Urinary retention: Code(s): R33.9 - Retention of urine, unspecified Status: Acute Assessment and Plan: Postvoid residual only about 200 mL yesterday by bladder scan. UA benign. Continue to monitor; repeat if having symptoms. (6) Tobacco abuse: Code(s): Z72.0 - Tobacco use Status: Acute Assessment and Plan: Educate about the benefits of smoking cessation. (7) DVT prophylaxis: Code(s): Z29.9 - Encounter for prophylactic measures, unspecified Status: Acute Assessment and Plan: Lovenox Subjective Date/time seen: 08/03/20 15:24 Interval history: Date of visit 08/03 80yo female with HTN status post appendectomy for ruptured appendix with localized peritonitis. Assuming care. Chart reviewed. +BM and flatus. the fullness is resolving. No CP. No further food sticking sensation today when she did the swallow study. Up walking to the BR. Has mild cough that is nonproductive. Exam Narrative: Exam Narrative: AF 96.3 148/69 78 16 92% ra Gen - NARD lying semi-recumbent in bed Chest - CTA bilaterally, nml RR CV - RRR S1/S2 Abd - Soft, +BS, serous staining on the lower, midline abd dressing; serous fluid in bulb Ext - No pedal edema Neuro - Alert and oriented. Nonfocal exam. Psych - Nml mood and affect Skin - Warm and dry Objective Data Vital Signs Vital Signs: Vital Signs - 24 hr 08/02/20 20:02 08/03/20 06:00 08/03/20 08:13 Temperature 98 F 97.3 F L Pulse Rate 70 70 62 Respiratory Rate 16 17 Blood Pressure 142/63 H 148/63 H Pulse Oximetry 91 93 08/03/20 14:00 Temperature 96.3 F L Pulse Rate 78 Respiratory Rate 16 Blood Pressure 148/69 H Pulse Oximetry 92 Intake/Output Intake/Output: Intake & Output 07/31/20 08/01/20 08/02/20 08/03/20 23:59 23:59 23:59 23:59 Intake Total 2120 3960 3020 1540 Output Total 167 880 6307 1105 Balance 1950 3220 1520 435 Meds/Results Medications: Active Medications Generic Name Dose Route Start Last Admin Trade Name Freq PRN Reason Stop Dose Admin Acetaminophen 650 mg 07/31/20 16:35 08/02/20 19:58 Acetaminophen 325 Mg Tablet PO 650 mg Q6H PRN Administration Mild Pain (1-3) or Fever Hydrocodone Bitart/Acetaminophen 1 tab 07/31/20 16:35 08/03/20 00:35 Hydrocodone/Acetaminophen (*Crx) 5-325 Mg Tablet PO 1 tab Q6H PRN Administration Pain Rated 4-6 Amlodipine Besylate 10 mg 08/02/20 09:00 08/03/20 08:08 Amlodipine Besylate 5 Mg Tablet PO 10 mg QAM ONEIL Administration Docusate Sodium 100 mg 07/31/20 21:00 08/03/20 08:08 Docusate S
[2020-08-03] MEDS: ENOXAPARIN 40 MG/0.4 ML SYRINGE SUB-Q (20:57)
[2020-08-03 21:28] VITALS: BP 156/66; PULSE 71; RESP 18; TEMP 36.1; O2SAT 94
[2020-08-04 00:47] LABS: Osmolality, Urine 744 mOsm/kg (50-1200)
[2020-08-04 05:58] LABS: Hematocrit 36.6 % (37.0-47.0); Hemoglobin 12.9 g/dL (12.0-15.0); Mean Corpuscular HGB Conc 35.2 g/dl (32-36); Mean Corpuscular Hemoglobin 29.3 pg (26-34); Mean Corpuscular Volume 83.2 fl (80-100); Mean Platelet Volume 8.7 fl (7.4-10.4); Platelet Count Result 374 k/mm3 (150-375); Red Cell Distribution Width 12.4 % (11.5-14.5); White Blood Count 10.5 K/mm3 (4.5-10.0)
[2020-08-04 06:06] LABS: Anion Gap 7 mmol/L (8-16); Blood Urea Nitrogen 6 mg/dL (7-17); Calcium 8.3 mg/dL (8.4-10.2); Carbon Dioxide 27 mmol/L (22-30); Chloride 92 mmol/L (98-107); Estimated CRCL calculation 91 ml/min; Estimated Glomerular Filt Rate > 60; Glucose 105 mg/dL (65-105); Potassium 2.9 mmol/L (3.4-5.0); Sodium 126 mmol/L (137-145)
[2020-08-04 06:13] VITALS: BP 155/65; PULSE 65; RESP 15; TEMP 36.5; O2SAT 97
[2020-08-04 08:50] VITALS: PULSE 72
[2020-08-04] MEDS: NEBIVOLOL HCL 5 MG TABLET 10 MG PO (08:50)
[2020-08-04] MEDS: DOCUSATE SODIUM 100 MG CAPSULE PO ×2 (08:51→21:34)
[2020-08-04] MEDS: amLODIPine BESYLATE 5 MG TABLET 10 MG PO (08:51)
[2020-08-04] MEDS: POTASSIUM CHLORIDE 20 MEQ PACKET (FOR LIQUID) 40 MEQ PO ×2 (10:11→21:34)
--- NOTE | 2020-08-04 10:31 | WPDGICN ---
Assessment and Plan Assessment and plan (1) Dysphagia: Code(s): R13.10 - Dysphagia, unspecified Status: Acute Assessment and Plan: Dysphagia of uncertain etiology. May be related to his distal esophageal diverticulum. Other etiologies cannot be excluded. Plan is for an EGD. However would recommend we defer this and perform it as an outpatient. Given her recent ileus after complicated perforated appendicitis. Proceeding with endoscopy at this point is not beneficial. Would recommend soft diet. Follow-up EGD electively as an outpatient my office. (2) Acute perforated appendicitis: Code(s): K35.32 - Acute appendicitis with perforation and localized peritonitis, without abscess Status: Acute (3) Adynamic ileus: Code(s): K56.0 - Paralytic ileus Status: Acute GI Consult Note Consult date/time: 08/04/20 10:31 HPI: Jennifer Saldaña is a 80 year old female I am asked to see for dysphagia. Patient reports difficulty swallowing for the last 1-2 months. She states that there is no problem while standing upright and swallowing. Occasional difficulty well sitting or leaning forward. This appears to worsen after recent surgery where she required intubation. She states happens with practically all food times but more so with solid foods. She points to the throat states food will seem to hang up at this point. Patient is status post laparoscopic appendectomy for ruptured appendix. She has had a postoperative ileus. Because of complaints of dysphagia barium swallow recent feels esophageal diverticulum in the distal esophagus. Review of Systems Review of Systems: All systems reviewed & are unremarkable except as noted in HPI and below PMFSH Past Medical History Medical History (Updated 08/03/20 @ 11:28 by Virginia Ho MD) Anxiety Back pain Breast cancer HTN (hypertension) Surgical History Surgical History (Updated 08/01/20 @ 13:18 by Huy Campos MD) History of hysterectomy Status post left mastectomy Family History Family History (Updated 08/01/20 @ 13:19 by Huy Campos MD) Father Hypertension Mother No problems noted. 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 and lives alone Two children living and well who live in the area Smoking packs per day: 0.5 Smoking cigarettes per day: 10.0 Smoking status: Current every day smoker Tobacco type: cigarettes Alcohol intake: former Substance use: never Spiritual care concerns: No Meds Home Medications and Allergies Home Medications Medication Instructions Recorded Confirmed Type amlodipine 10 mg PO DAILY 07/31/20 07/31/20 History lisinopril 40 mg PO DAILY 07/31/20 07/31/20 History nebivolol [Bystolic] 10 mg PO DAILY 07/31/20 07/31/20 History Allergies Allergy/AdvReac Type Severity Reaction Status Date / Time No Known Allergies Allergy Verified 07/31/20 17:08 Vital Signs Vital Signs - 24 hr 08/03/20 14:00 08/03/20 21:28 08/04/20 06:13 Temperature 96.3 F L 97 F L 97.7 F Pulse Rate 78 71 65 Respiratory Rate 16 18 15 Blood Pressure 148/69 H 156/66 H 155/65 H Pulse Oximetry 92 94 97 08/04/20 08:50 Temperature Pulse Rate 72 Respiratory Rate Blood Pressure Pulse Oximetry Exam Narrative: Exam Narrative: Physical exam reveals Vital Signs to be stable. HEENT exam unremarkable. Nor visible throat lesions evident. Chest is clear. Abdomen bowel sounds are present soft she has some tenderness at the incision site. Bowel sounds are presently normal. Results Labs CBC & Chem 7: 08/04/20 05:46 08/04/20 05:45 Labs: Short CBC 08/04/20 Range/Units 05:46 WBC 10.5 H (4.5-10.0) K/mm3 Hgb 12.9 (12.0-15.0) g/dL Hct 36.6 L (37.0-47.0) % Plt Count 374 (15
[2020-08-04] MEDS: SODIUM CHLORIDE 0.9% IV 1,000 ML 100 ML IV CONT (11:28)
--- NOTE | 2020-08-04 12:27 | PM.PNGS ---
Progress Note: A&P Assessment and Plan (1) Acute perforated appendicitis: Code(s): K35.32 - Acute appendicitis with perforation and localized peritonitis, without abscess Status: Acute Assessment and Plan: POD#4 and doing well post-operatively. Tolerating a regular diet and starting to increase oral intake, will add supplements. Bowels are moving. WBC 10,500 today and she remains afebrile. Continue IV antibiotics. Will plan to remove EULOGIO drain prior to discharge. Encouraged increased activity/walking the halls, and IS use. (2) Hyponatremia: Code(s): E87.1 - Hypo-osmolality and hyponatremia Status: Acute Assessment and Plan: Sodium 126 today. Continue to monitor labs. Management per Hospitalist/Nephrology. (3) Dysphagia: Code(s): R13.10 - Dysphagia, unspecified Status: Acute Assessment and Plan: Modified Barium Swallow showed deglutition appeared prompt and normal. No stricture, mucosal fold thickening, erosion, ulceration or intraluminal mass lesion of the esophagus is detected. Showed small sliding hiatal hernia and couple of small divertiula of distal esophagus. Discussed results with patient. GI also consulted and appreciate recommendations. Additional Plan Discussed plan of care with Dr. Amador. Subjective Subjective Date/Time Seen: 08/04/20 11:41 Post Op day: 4 (lap appy with washout of intra-abdominal abscess) Patient reports: no new complaints, feels better, pain is less, tolerating a regular diet, flatus and bowel movement Interval history: Patient feeling better today. She does complain of some overall generalized weakness. Abdominal pain has improved and bloating has improved. Denies any nausea or vomiting. Passing gas and multiple BMs since my exam yesterday. Still having some complaints of dysphagia. Walking the halls and tolerating this well. Reports cough today. No other complaints at this time. Review of Systems Review of Systems: All systems reviewed & are unremarkable except as noted in HPI and below Constitutional: Constitutional: Reports no additional constitutional complaints, Denies chills and Denies fever(s) Cardiovascular: Cardiovascular: Reports no additional cardiovascular complaints, Denies chest pain and Denies pedal edema Respiratory: Respiratory: Reports as per HPI, Reports no additional respiratory complaints, Reports cough and Denies dyspnea Gastrointestinal: Gastrointestinal: Reports as per HPI and Reports no additional gastrointestinal complaints Exam Const: General: no acute distress, alert and awake Orientation/consciousness: patient oriented x3 Resp: Auscultation: wheezes expiratory wheezes and throughout Cardio: Rate: regular rate Rhythm: regular rhythm GI: Inspection: incision (trochar incisions clean and dry with glue intact), no visible herniation and other (EULOGIO drain with serous output, mildly distended abd) GI Palp: Yes Soft to palpation, Yes Tenderness to palpation present (GI) (worse in RLQ, but overall improved), No Guarding due to palpation present (GI) and No Rebound tenderness present Auscultation: normal bowel sounds Skin: General skin exam: normal color Neuro: General: moves all extremities and no focal motor deficits Extrem: General: no clubbing, cyanosis or edema and no calf tenderness Psych: Appearance: grossly normal Speech and movement: Normal speech and movement present Insight: Good insight present (Psych) Judgement: Good judgement present (Psych) Objective Data Vital Signs Vital Signs: Vital Signs - 24 hr 08/03/20 14:00 08/03/20 21:28 08/04/20 06:13 Temperature 96.3 F L 97 F L 97.7 F Pulse Rate 78 71 65 Respiratory Rate 16 18 15 Blood Pressure 148/69 H 156/66 H 155/65 H Pulse Oximetry 92 94 97 08/04/20 08:50 Temperature Pulse Rate 72 Respiratory Rate Blood Pressure Pulse Oximetry Intake/Output Intake/Output: Intake & Output 08/01/20 08/02/20 08/03/20 08/04/20 23:59 23:59
[2020-08-04 14:00] VITALS: BP 147/58; PULSE 68; RESP 18; TEMP 35.9; O2SAT 96
--- NOTE | 2020-08-04 16:57 | PM.IMPN ---
Progress Note: A&P Assessment and Plan (1) Acute perforated appendicitis: Code(s): K35.32 - Acute appendicitis with perforation and localized peritonitis, without abscess Status: Acute Assessment and Plan: Patient presents with abdominal pain and found to have appendicitis with perforation and peritonitis. Postop day 4 from an appendectomy and abdominal washout. WBC 20K on admission but better at 10K now. Continue Zosyn per surgery. (2) Hyponatremia: Code(s): E87.1 - Hypo-osmolality and hyponatremia Status: Acute Assessment and Plan: Na 126 on admission. Suspect intravascular volume depletion and hypovolemia from clinical findings and lab evaluation initally. Urine sodium low at 11. Na still 126 and she is voiding well. May have changed to SIADH from pain or dilution from remobilization of fluids. Will stop IV fluids. Agree with Na tablets. Repeat Johnna. Appreciate nephrology input. Potassium low again. Could be dilutional. Will replace. (3) Adynamic ileus: Code(s): K56.0 - Paralytic ileus Status: Acute Assessment and Plan: Patient with flatus and BMs. Ileus resolving. (4) HTN (hypertension): Code(s): I10 - Essential (primary) hypertension Status: Acute Assessment and Plan: Patient's blood pressure was reviewed on 08/04 Blood pressure mostly well controlled. Will continue current medications. Continue Bystolic and amlodipine. Resume TESS-inhibitor (5) Urinary retention: Code(s): R33.9 - Retention of urine, unspecified Status: Acute Assessment and Plan: Postvoid residual only about 200 mL by bladder scan. UA benign. Continue to monitor; repeat if having symptoms. (6) Tobacco abuse: Code(s): Z72.0 - Tobacco use Status: Acute Assessment and Plan: Educate about the benefits of smoking cessation. (7) DVT prophylaxis: Code(s): Z29.9 - Encounter for prophylactic measures, unspecified Status: Acute Assessment and Plan: Lovenox Subjective Date/time seen: 08/04/20 16:57 Interval history: Date of visit 08/04 80yo female with HTN status post appendectomy for ruptured appendix with localized peritonitis. Patient feels well. Still sore but pain tolerable. Walking in the halls. +BMs. Having excessive UOP. No CP or SOB. Exam Narrative: Exam Narrative: AF 96.7 147/58 68 18 96% ra Gen - NARD sittiing at the side of the bed Chest - CTA posteriorly, expir rhonchi anteriorly CV - RRR S1/S2 Abd - Soft, +BS, serous staining on the lower, midline abd dressing; serous fluid in bulb Ext - No pedal edema Psych - Nml mood and affect Skin - Warm and dry Objective Data Vital Signs Vital Signs: Vital Signs - 24 hr 08/03/20 21:28 08/04/20 06:13 08/04/20 08:50 Temperature 97 F L 97.7 F Pulse Rate 71 65 72 Respiratory Rate 18 15 Blood Pressure 156/66 H 155/65 H Pulse Oximetry 94 97 08/04/20 14:00 Temperature 96.7 F L Pulse Rate 68 Respiratory Rate 18 Blood Pressure 147/58 H Pulse Oximetry 96 Intake/Output Intake/Output: Intake & Output 08/01/20 08/02/20 08/03/20 08/04/20 23:59 23:59 23:59 23:59 Intake Total 3960 3020 2910 510 Output Total 740 1500 1535 30 Balance 3220 1520 1375 480 Meds/Results Medications: Active Medications Generic Name Dose Route Start Last Admin Trade Name Freq PRN Reason Stop Dose Admin Acetaminophen 650 mg 07/31/20 16:35 08/02/20 19:58 Acetaminophen 325 Mg Tablet PO 650 mg Q6H PRN Administration Mild Pain (1-3) or Fever Hydrocodone Bitart/Acetaminophen 1 tab 07/31/20 16:35 08/03/20 00:35 Hydrocodone/Acetaminophen (*Crx) 5-325 Mg Tablet PO 1 tab Q6H PRN Administration Pain Rated 4-6 Amlodipine Besylate 10 mg 08/02/20 09:00 08/04/20 08:51 Amlodipine Besylate 5 Mg Tablet PO 10 mg QAM ONEIL Administration Docusate Sodium 100 mg 07/31/20 21:00 08/04/20
[2020-08-04] MEDS: SODIUM CHLORIDE 500 MG TABLET PO (17:15)
--- NOTE | 2020-08-04 18:17 | PM.PNNEP ---
Progress Note: A&P Assessment and Plan (1) Hyponatremia: Code(s): E87.1 - Hypo-osmolality and hyponatremia Status: Acute Assessment and Plan: reportedly an acute issue as labs 2 weeks ago with normal sodium level however, from reviewing her history, she has had sodium levels as low as 132 - 135 since 2013 urine electrolytes are prerenal which would suggest hypovolemic hyponatremia - history and exam support this as well however, given pain issues and need for pain meds, this may be a contributing factor to her low sodium level (SIADH picture) along with her smoking history TSH and cortisol okay; CXR without tumors/massess...etc; serum/urine osmolality, SPEP, and UPEP pending sodium has failed to correct with normal saline IVFs will add low dose salt tabs to see if this helps follow repeat sodium levels (2) Acute perforated appendicitis: Code(s): K35.32 - Acute appendicitis with perforation and localized peritonitis, without abscess Status: Acute Assessment and Plan: s/p surgical intervention Surgery following (3) HTN (hypertension): Code(s): I10 - Essential (primary) hypertension Status: Acute Assessment and Plan: reasonable control follow trend of hemodynamics Will continue to follow. Subjective Date/time seen: 08/04/20 18:17 Appears to be slowly improving; eating and drinking reasonably well; ambulating as tolerated; no apparent events overnight or earlier this AM. Exam Narrative: Exam Narrative: General: WD/WN female in NAD Heart: normal S1 and S2; no rub Lungs: clear to auscultation Abdomen: soft, with some TTP present; positive bowel sounds Extremities: no cyanosis or clubbing; no edema Skin: warm and intact Objective Data Vital Signs Vital Signs: Vital Signs Temp Pulse Resp BP Pulse Ox 08/04/20 14:00 35.9 C L 68 18 147/58 H 96 08/04/20 08:50 72 08/04/20 06:13 36.5 C 65 15 155/65 H 97 08/03/20 21:28 36.1 C L 71 18 156/66 H 94 Intake/Output Intake/Output: Intake & Output 08/01/20 08/02/20 08/03/20 08/04/20 23:59 23:59 23:59 23:59 Intake Total 3960 3020 2910 1350 Output Total 740 1500 1535 970 Balance 3220 1520 1375 380 Meds/Results Medications: Active Medications Generic Name Dose Route Start Last Admin Trade Name Freq PRN Reason Stop Dose Admin Acetaminophen 650 mg 07/31/20 16:35 08/02/20 19:58 Acetaminophen 325 Mg Tablet PO 650 mg Q6H PRN Administration Mild Pain (1-3) or Fever Hydrocodone Bitart/Acetaminophen 1 tab 07/31/20 16:35 08/03/20 00:35 Hydrocodone/Acetaminophen (*Crx) 5-325 Mg Tablet PO 1 tab Q6H PRN Administration Pain Rated 4-6 Amlodipine Besylate 10 mg 08/02/20 09:00 08/04/20 08:51 Amlodipine Besylate 5 Mg Tablet PO 10 mg QAM ONEIL Administration Docusate Sodium 100 mg 07/31/20 21:00 08/04/20 08:51 Docusate Sodium 100 Mg Capsule PO 100 mg Q12HR ONEIL Administration Enoxaparin Sodium 40 mg 08/01/20 21:00 08/03/20 20:57 Enoxaparin 40 Mg/0.4 Ml Syringe SUB-Q 40 mg HS ONEIL Administration Piperacillin/Tazobactam/Dextrose 3.375 gm in 50 mls @ 100 mls/hr 07/31/20 18:00 08/04/20 17:46 Zosyn 3.375 Gm/D5w 50ml Pm IVPB Infused Q6HR ONEIL Infusion Morphine Sulfate 2 mg 07/31/20 16:35 08/03/20 03:24 Morphine Sulfate (*Crx) 2 Mg/Ml Inj IV PUSH 2 mg Q4H PRN Administration Pain Rated 7-10 Nebivolol 10 mg 08/01/20 10:15 08/04/20 08:50 Nebivolol Hcl 5 Mg Tablet PO 10 mg DAILY ONEIL Administration Ondansetron HCl 4 mg 07/31/20 15:20 08/02/20 02:27 Ondansetron Inj 4 Mg/2 Ml Vial IV PUSH 4 mg Q4H PRN Administration Nausea And Vomiting Polyethylene Glycol 17 gm 08/02/20 13:12 08/04/20 08:51 Polyethylene Glycol 3350 17 Gm Powd.Pack PO Not Given QAM ONEIL Sodium Chloride 500 mg 08/04/20 17:00 08/04/20 17:15 Sodium Chloride 500 Mg Tablet PO 500 mg BI
[2020-08-04 21:06] VITALS: BP 144/56; PULSE 65; RESP 16; TEMP 36.6; O2SAT 96
[2020-08-04] MEDS: ENOXAPARIN 40 MG/0.4 ML SYRINGE SUB-Q (21:34)
[2020-08-05 06:20] LABS: Anion Gap 6 mmol/L (8-16); Blood Urea Nitrogen 9 mg/dL (7-17); Calcium 8.6 mg/dL (8.4-10.2); Carbon Dioxide 26 mmol/L (22-30); Chloride 96 mmol/L (98-107); Estimated CRCL calculation 91 ml/min; Estimated Glomerular Filt Rate > 60; Glucose 106 mg/dL (65-105); Potassium 3.4 mmol/L (3.4-5.0); Sodium 128 mmol/L (137-145)
[2020-08-05 06:39] VITALS: BP 149/67; PULSE 69; RESP 18; TEMP 36.3; O2SAT 98
[2020-08-05 06:58] LABS: Sodium Urine Random 122 meq/L
[2020-08-05 10:14] VITALS: PULSE 67
[2020-08-05] MEDS: DOCUSATE SODIUM 100 MG CAPSULE PO (10:14)
[2020-08-05] MEDS: amLODIPine BESYLATE 5 MG TABLET 10 MG PO (10:14)
[2020-08-05] MEDS: lisinopriL 20 MG TABLET 40 MG PO (10:14)
[2020-08-05] MEDS: polyethylene glycoL 3350 17 GM POWD.PACK PO (10:14)
[2020-08-05] MEDS: NEBIVOLOL HCL 5 MG TABLET 10 MG PO (10:14)
[2020-08-05] MEDS: SODIUM CHLORIDE 500 MG TABLET PO ×2 (10:14→18:04)
--- NOTE | 2020-08-05 10:55 | WPDGIPROGNO ---
Progress Note: A&P Additional Plan Patient alert and comfortable this morning. She states she has no difficulty swallowing if she is upright. The exam reveals throat be clear. Lungs are clear. Abdomen with some incisional tenderness. Impression 1. Dysphagia. May represent oropharyngeal dysphagia. She has had symptoms for 1-2 months. Plan an EGD as an outpatient after she has recovered from her appendectomy. She is noted to have distal esophageal diverticula on barium swallow which potentially could contribute to her symptoms. 2. Status post appendectomy. Ruptured appendix with postoperative ileus appears to be improving. Subjective Date/time seen: 08/05/20 10:55 Objective Data Vital Signs Vital Signs: Vital Signs - 24 hr 08/04/20 14:00 08/04/20 21:06 08/05/20 06:39 Temperature 96.7 F L 97.8 F 97.4 F L Pulse Rate 68 65 69 Respiratory Rate 18 16 18 Blood Pressure 147/58 H 144/56 H 149/67 H Pulse Oximetry 96 96 98 08/05/20 10:14 Temperature Pulse Rate 67 Respiratory Rate Blood Pressure Pulse Oximetry Intake/Output Intake/Output: Intake & Output 08/02/20 08/03/20 08/04/20 08/05/20 23:59 23:59 23:59 23:59 Intake Total 3020 2910 1400 670 Output Total 1500 1535 970 960 Balance 1520 1375 430 -290 Meds/Results Medications: Active Medications Generic Name Dose Route Start Last Admin Trade Name Freq PRN Reason Stop Dose Admin Acetaminophen 650 mg 07/31/20 16:35 08/02/20 19:58 Acetaminophen 325 Mg Tablet PO 650 mg Q6H PRN Administration Mild Pain (1-3) or Fever Hydrocodone Bitart/Acetaminophen 1 tab 07/31/20 16:35 08/03/20 00:35 Hydrocodone/Acetaminophen (*Crx) 5-325 Mg Tablet PO 1 tab Q6H PRN Administration Pain Rated 4-6 Amlodipine Besylate 10 mg 08/02/20 09:00 08/05/20 10:14 Amlodipine Besylate 5 Mg Tablet PO 10 mg QAM ONEIL Administration Docusate Sodium 100 mg 07/31/20 21:00 08/05/20 10:14 Docusate Sodium 100 Mg Capsule PO 100 mg Q12HR ONEIL Administration Enoxaparin Sodium 40 mg 08/01/20 21:00 08/04/20 21:34 Enoxaparin 40 Mg/0.4 Ml Syringe SUB-Q 40 mg HS ONEIL Administration Piperacillin/Tazobactam/Dextrose 3.375 gm in 50 mls @ 100 mls/hr 07/31/20 18:00 08/05/20 05:47 Zosyn 3.375 Gm/D5w 50ml Pm IVPB Infused Q6HR ONEIL Infusion Lisinopril 40 mg 08/05/20 09:00 08/05/20 10:14 Lisinopril 20 Mg Tablet PO 40 mg DAILY ONEIL Administration Morphine Sulfate 2 mg 07/31/20 16:35 08/03/20 03:24 Morphine Sulfate (*Crx) 2 Mg/Ml Inj IV PUSH 2 mg Q4H PRN Administration Pain Rated 7-10 Nebivolol 10 mg 08/01/20 10:15 08/05/20 10:14 Nebivolol Hcl 5 Mg Tablet PO 10 mg DAILY ONEIL Administration Ondansetron HCl 4 mg 07/31/20 15:20 08/02/20 02:27 Ondansetron Inj 4 Mg/2 Ml Vial IV PUSH 4 mg Q4H PRN Administration Nausea And Vomiting Polyethylene Glycol 17 gm 08/02/20 13:12 08/05/20 10:14 Polyethylene Glycol 3350 17 Gm Powd.Pack PO 17 gm QAM ONEIL Administration Sodium Chloride 500 mg 08/04/20 17:00 08/05/20 10:14 Sodium Chloride 500 Mg Tablet PO 500 mg BID ONEIL Administration Radiology Results: ITS Impressions Abdomen/Pelvis CT 07/31/20 11:55 IMPRESSION: 1. Acute appendicitis with thickening of the adjacent cecum and small bowel, likely reactive. Dilated small bowel loops are present with air-fluid levels which may relate to ileus or partial obstruction. Chest X-Ray 08/01/20 11:49 Impression: 1: Bibasilar atelectasis. Barium Swallow X-Ray 08/03/20 14:21 IMPRESSION: Small sliding hiatal hernia Small distal esophageal diverticula Labs Labs: Laboratory Results - last 24 hr 08/02/20 08/05/20 08/05/20 05:45 05:35 06:43 Sodium 128 L Potassium 3.4 Chloride 96 L Carbon Dioxide 26 Anion Gap 6 L BUN 9 Creatinine 0.40 L Estim Creat Clear Calc 91 Estimated GFR > 60 Glucose 106 H Serum Osmolalit
--- NOTE | 2020-08-05 11:24 | PM.PNGS ---
Progress Note: A&P Assessment and Plan (1) Acute perforated appendicitis: Code(s): K35.32 - Acute appendicitis with perforation and localized peritonitis, without abscess Status: Acute Assessment and Plan: Continues to improve. Appetite improving, tolerating a regular diet and bowels are moving. Continue IV antibiotics. Will plan to remove EULOGIO drain prior to discharge. Encouraged increased activity/walking the halls, and IS use. (2) Hyponatremia: Code(s): E87.1 - Hypo-osmolality and hyponatremia Status: Acute Assessment and Plan: Sodium 128 today. Continue to monitor labs. Management per Hospitalist/Nephrology. (3) Dysphagia: Code(s): R13.10 - Dysphagia, unspecified Status: Acute Assessment and Plan: Seems to be improving. Tolerating her diet. GI following, recommendations noted. Additional Plan Discussed plan of care with Dr. Amador. Subjective Subjective Date/Time Seen: 08/05/20 09:40 Post Op day: 5 Patient reports: feels better, voiding w/o difficulty, flatus and bowel movement Interval history: Patient reports feeling better today. She is tired from not sleeping in the hospital, but no other new complaints. Reports her overall bloating and abdominal pain continues to improve. Tolerating a regular diet, appetite is improving. Increasing oral intake. She states dysphagia has improved. Review of Systems Review of Systems: All systems reviewed & are unremarkable except as noted in HPI and below Constitutional: Constitutional: Reports as per HPI, Reports no additional constitutional complaints, Denies chills and Denies fever(s) Cardiovascular: Cardiovascular: Reports no additional cardiovascular complaints, Denies chest pain, Denies rapid heart rate and Denies leg edema Respiratory: Respiratory: Reports no additional respiratory complaints, Reports cough, Denies dyspnea and Denies wheezing Gastrointestinal: Gastrointestinal: Reports as per HPI and Reports no additional gastrointestinal complaints Genitourinary: Genitourinary: Reports no additional female genitourinary complaints and Reports as per HPI Exam Const: General: comfortable, no acute distress, alert and awake Orientation/consciousness: patient oriented x3 Resp: Effort & Inspection: normal respiratory effort Auscultation: wheezes expiratory wheezes and throughout Cardio: Rate: regular rate Rhythm: regular rhythm GI: Inspection: incision (Abdominal incisions clean, dry, and glue intact) and other (mildly distended, EULOGIO drain with serous output) GI Palp: Yes Soft to palpation, Yes Tenderness to palpation present (GI) (RLQ tenderness improving, more incisional tenderness today), No Guarding due to palpation present (GI) and No Rebound tenderness present Auscultation: normal bowel sounds Skin: General skin exam: normal color Neuro: General: patient oriented x3 and moves all extremities Cranial nerves: Yes CN's II-XII intact bilaterally Speech: normal speech Extrem: General: no calf tenderness and no edema Psych: Appearance: grossly normal Mental Status: mental status grossly normal Speech and movement: Normal speech and movement present Attitude: cooperative Thought process: Normal thought process present Thought content: Yes Normal thought content present Insight: Good insight present (Psych) Judgement: Good judgement present (Psych) Objective Data Vital Signs Vital Signs: Vital Signs - 24 hr 08/04/20 14:00 08/04/20 21:06 08/05/20 06:39 Temperature 96.7 F L 97.8 F 97.4 F L Pulse Rate 68 65 69 Respiratory Rate 18 16 18 Blood Pressure 147/58 H 144/56 H 149/67 H Pulse Oximetry 96 96 98 08/05/20 10:14 Temperature Pulse Rate 67 Respiratory Rate Blood Pressure Pulse Oximetry Intake/Output Intake/Output: Intake & Output 08/02/20 08/03/20 08/04/20 08/05/20 23:59 23:59 23:59 23:59 Intake Total 3020 2910 1400 670 Output Total 1500 1535 970 960 Balance 1520 1375 430 -290
[2020-08-05 13:18] LABS: Creatinine, Random Urine 117 mg/dL (20-275); Total Protein/Creatinine Ratio 1026 mg/g creat (21-161)
[2020-08-05 13:56] LABS: Kappa\\Lambda Light Chains 0.92 (0.26-1.65); Lambda Light Chain 9.6 mg/L (5.7-26.3)
[2020-08-05 14:41] VITALS: BP 137/63; PULSE 69; RESP 18; TEMP 36.4; O2SAT 96
--- NOTE | 2020-08-05 15:36 | PM.PNNEP ---
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 Subjective Date/time seen: 08/05/20 15:36 No acute complaints voiced at this time aside from the sensation of feeling bloated; eating but not very much; did not sleep very well last night; no acute events overnight or earlier this AM. Exam Narrative: Exam Narrative: General: WD/WN female in NAD Heart: normal S1 and S2; no rub Lungs: clear to auscultation Abdomen: soft, with some TTP present; positive bowel sounds Extremities: no cyanosis or clubbing; no edema Skin: no rash or nodules Objective Data Vital Signs Vital Signs: Vital Signs Temp Pulse Resp BP Pulse Ox 08/05/20 14:41 36.4 C L 69 18 137/63 96 08/05/20 10:14 67 08/05/20 06:39 36.3 C L 69 18 149/67 H 98 08/04/20 21:06 36.6 C 65 16 144/56 H 96 Intake/Output Intake/Output: Intake & Output 08/02/20 08/03/20 08/04/20 08/05/20 23:59 23:59 23:59 23:59 Intake Total 3020 2910 1400 840 Output Total 1500 8613 906 9790 Balance 1520 1375 430 -820 Meds/Results Medications: Active Medications Generic Name Dose Route Start Last Admin Trade Name Freq PRN Reason Stop Dose Admin Acetaminophen 650 mg 07/31/20 16:35 08/02/20 19:58 Acetaminophen 325 Mg Tablet PO 650 mg Q6H PRN Administration Mild Pain (1-3) or Fever Hydrocodone Bitart/Acetaminophen 1 tab 07/31/20 16:35 08/03/20 00:35 Hydrocodone/Acetaminophen (*Crx) 5-325 Mg Tablet PO 1 tab Q6H PRN Administration Pain Rated 4-6 Amlodipine Besylate 10 mg 08/02/20 09:00 08/05/20 10:14 Amlodipine Besylate 5 Mg Tablet PO 10 mg QAM ONEIL Administration Docusate Sodium 100 mg 07/31/20 21:00 08/05/20 10:14 Docusate Sodium 100 Mg Capsule PO 100 mg Q12HR ONEIL Administration Enoxaparin Sodium 40 mg 08/01/20 21:00 08/04/20 21:34 Enoxaparin 40 Mg/0.4 Ml Syringe SUB-Q 40 mg HS ONEIL Administration Piperacillin/Tazobactam/Dextrose 3.375 gm in 50 mls @ 100 mls/hr 07/31/20 18:00 08/05/20 13:20 Zosyn 3.375 Gm/D5w 50ml Pm IVPB Infused Q6HR ONEIL Infusion Lisinopril 40 mg 08/05/20 09:00 08/05/20 10:14 Lisinopril 20 Mg Tablet PO 40 mg DAILY ONEIL Administration Morphine Sulfate 2 mg 07/31/20 16:35 08/03/20 03:24 Morphine Sulfate (*Crx) 2 Mg/Ml Inj IV PUSH 2 mg Q4H PRN Administration Pain Rated 7-10 Nebivolol 10 mg 08/01/20 10:15 08/05/20 10:14 Nebivolol Hcl 5 Mg Tablet PO 10 mg DAILY ONEIL Administration Ondansetron HCl 4 mg 07/31/20 15:20 08/02/20 02:27 Ondansetron Inj 4 Mg/2 Ml Vial IV PUSH 4 mg Q4H PRN Administration Nausea And Vomiting Polyethylene Glycol 17 gm 08/02/20 13:12 08/05/20 10:14 Polyethylene Glycol 3350 17 Gm Powd.Pack PO 17 gm QAM ONEIL
--- NOTE | 2020-08-05 15:58 | PM.IMPN ---
Progress Note: A&P Assessment and Plan (1) Acute perforated appendicitis: Code(s): K35.32 - Acute appendicitis with perforation and localized peritonitis, without abscess Status: Acute Assessment and Plan: Patient presents with abdominal pain and found to have appendicitis with perforation and peritonitis. Postop day 5 from an appendectomy and abdominal washout. WBC 20K on admission but better at 10K yesterday. Continue Zosyn per surgery. (2) Hyponatremia: Code(s): E87.1 - Hypo-osmolality and hyponatremia Status: Acute Assessment and Plan: Na 126 on admission. Suspect intravascular volume depletion and hypovolemia from clinical findings and lab evaluation initially. Urine sodium low at 11. She was treated with IV fluids but Na still 126 and she is voiding well. 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 Na 128 today . Johnna 122 now. Na tablets started 08/04. Fluid restriction ordered. (3) Adynamic ileus: Code(s): K56.0 - Paralytic ileus Status: Acute Assessment and Plan: Patient with flatus and BMs. Ileus resolving. (4) HTN (hypertension): Code(s): I10 - Essential (primary) hypertension Status: Acute Assessment and Plan: Patient's blood pressure was reviewed on 08/05 Blood pressure mostly well controlled. Will continue current medications. Continue Bystolic, Lisinopril and amlodipine. (5) Urinary retention: Code(s): R33.9 - Retention of urine, unspecified Status: Acute Assessment and Plan: Postvoid residual only about 200 mL by bladder scan. UA benign. Continue to monitor; repeat if having symptoms. (6) Tobacco abuse: Code(s): Z72.0 - Tobacco use Status: Acute Assessment and Plan: Educate about the benefits of smoking cessation. (7) DVT prophylaxis: Code(s): Z29.9 - Encounter for prophylactic measures, unspecified Status: Acute Assessment and Plan: Lovenox Subjective Date/time seen: 08/05/20 15:58 Interval history: Date of visit 08/05 80yo female with HTN status post appendectomy for ruptured appendix with localized peritonitis. No complaints. Slept poorly. Feels bloated still. Eating okay but not able to eat too much. No CP or SOB Exam Narrative: Exam Narrative: AF 97.5 137/63 69 18 96% ra Gen - NARD sitting on couch Chest - CTA bilaterally, nml RR CV - RRR S1/S2 Abd - Soft, +BS, old serous staining on abd dressing; serous fluid in bulb Ext - No pedal edema Psych - Nml mood and affect Skin - Warm and dry Objective Data Vital Signs Vital Signs: Vital Signs - 24 hr 08/04/20 21:06 08/05/20 06:39 08/05/20 10:14 Temperature 97.8 F 97.4 F L Pulse Rate 65 69 67 Respiratory Rate 16 18 Blood Pressure 144/56 H 149/67 H Pulse Oximetry 96 98 08/05/20 14:41 Temperature 97.5 F L Pulse Rate 69 Respiratory Rate 18 Blood Pressure 137/63 Pulse Oximetry 96 Intake/Output Intake/Output: Intake & Output 08/02/20 08/03/20 08/04/20 08/05/20 23:59 23:59 23:59 23:59 Intake Total 3020 2910 1400 840 Output Total 1500 6822 281 3569 Balance 1520 1375 430 -520 Meds/Results Medications: Active Medications Generic Name Dose Route Start Last Admin Trade Name Freq PRN Reason Stop Dose Admin Acetaminophen 650 mg 07/31/20 16:35 08/02/20 19:58 Acetaminophen 325 Mg Tablet PO 650 mg Q6H PRN Administration Mild Pain (1-3) or Fever Hydrocodone Bitart/Acetaminophen 1 tab 07/31/20 16:35 08/03/20 00:35 Hydrocodone/Acetaminophen (*Crx) 5-325 Mg Tablet PO 1 tab Q6H PRN Administration Pain Rated 4-6 Amlodipine Besylate 10 mg 08/02/20 09:00 08/05/20 10:14 Amlodipine Besylate 5 Mg Tablet PO 10 mg QAM ONEIL Administration Docusate Sodium 100 mg 07/31/20 21:00 08/05/20 10:14 Docusate Sodium 100 Mg Capsule PO 100 mg Q12HR ONEIL Administration Enoxaparin Sodium 40 mg 08/01/20 21:00
[2020-08-05] MEDS: ACETAMINOPHEN 325 MG TABLET 650 MG PO (18:38)
[2020-08-05 22:14] LABS: Albumin 2.4 g/dL (3.8-4.8); Alpha 1 Globulin 0.6 g/dL (0.2-0.3); Beta 1 Globulin 0.3 g/dL (0.4-0.6); Gamma Globulin 0.7 g/dL (0.8-1.7); Protein, Total 5.4 g/dL (6.1-8.1)
[2020-08-07 15:20] LABS: Chloride Rand Ur <20 mmol/L (32-290); Creatinine Random Urine 114 mg/dL (20-275)
--- NOTE | 2020-08-10 15:05 | PC.NURSE ---
Urine PEP- shows no abn peaks. Dr. Tarik france.
--- NOTE | 2020-08-11 16:14 | PM.DS ---
DS: Admitting Diagnosis Admitting Diagnosis Admitting Diagnosis: Acute appendicitis Ileus Hypertension Tobacco abuse DS: Discharge Diagnosis Discharge Diagnosis (1) Acute perforated appendicitis: Code(s): K35.32 - Acute appendicitis with perforation and localized peritonitis, without abscess Status: Acute Assessment and Plan: Patient underwent Laparoscopic appendectomy with washout of intraabdominal abscess by Dr. Ho on 07/31/20. (2) Hyponatremia: Code(s): E87.1 - Hypo-osmolality and hyponatremia Status: Acute Assessment and Plan: Patient was hyponatremic on admission with a sodium of 127. Labs two weeks prior showed a normal sodium, so this was felt to be acute hyponatremia. Post-operatively she continued to be hyponatremic. Hospitalist was consulted for the hyponatremia on 08/01/20, POD#1. They felt this was likely due to hypovolemia and started IV fluids and consulted Nephrology for their recommendation. Initial urine electrolytes and her clinical picture showed this was prerenal and supported the cause being hypovolemia. 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 TSH and cortisol checked and were okay. Chest x-ray showed no tumors, masses. IV fluids eventually stopped and low dose sodium tablets were started. She then was switched to a fluid restriction prior to discharge. Her sodium improved to 128. She will be discharged on sodium tablets and have a repeat BMP in 1 week. She also was discharged on a fluid restriction of no more than 1500 mL daily. (3) Dysphagia: Code(s): R13.10 - Dysphagia, unspecified Status: Acute Assessment and Plan: She began complaining of dysphagia on POD#3. Swallow study was performed and GI was consulted. Modified barium swallow was normal. GI consulted and recommended follow-up as an outpatient for possible endoscopy if this continues once she heals from a surgical standpoint. Apparently she has had dysphagia in the past prior to surgery as well. During her hospitalization, the complaint of dysphagia did improve as her ileus resolved and she was able to be advanced to a regular diet. (4) HTN (hypertension): Code(s): I10 - Essential (primary) hypertension Status: Acute Assessment and Plan: Remained stable during hospitalization. Continue home meds on discharge. (5) Tobacco abuse: Code(s): Z72.0 - Tobacco use Status: Acute Assessment and Plan: Encouraged cessation. DS: Summary Hospital Course Reason for hospitalization: Jennifer Saldaña is a 80 year old female who presented to the ED with complaints of worsening RLQ abd pain for 3 days. She also had associated nausea and decreased appetite. Evaluation in the ED showed evidence of acute appendicitis with thickening of the adjacent cecum and small bowel, likely reactive, and dilated small bowel loops with air-fluid levels which may relate to ileus or partial obstruction, as evidenced on the CT abd/pelvis. Labs revealed leukocytosis with WBC 19,800, sodium 127, and creatinine 1.1. The patient was admitted to our service in the setting of acute appendicitis with ileus likely secondary to the appendicitis. Hospital Course: DISCHARGE SUMMARY FOR 08/05/20. The patient was started on broad-spectrum IV antibiotics, IV fluids, and made NPO. She was taken urgently to the OR and underwent a laparoscopic appendectomy with washout of intraabdominal abscess by Dr. Ho on 07/31/20. Intra-operative findings showed acute perforated appendicitis with abscess. EULOGIO drain was placed during surgery to monitor post-operatively. Labs were monitored and her WBC eventually trended to normal. She was slowly advanced on a diet following surgery. Initially, she was taking in very little to no oral intake. She did continue to have an ileus post-operatively, which was treated with laxatives. Once her
== END 2020-08-05 20:20 | disposition home or self-care (01) | DRG 339 ==
LOC: ANHED 10:04 → ANHSURGERY 13:00 → ANH3MED 16:36
PROVIDERS: Internal Medicine; Internal Medicine Nephrology; Nurse Practitioner; Admitting Provider Surgery; Emergency Provider General Practice; PCP Internal Medicine; Visit Provider Internal Medicine
PROC: 0DTJ4ZZ Resection of Appendix, Percutaneous Endoscopic Approach (ICD-10-PCS; CPT 44970; principal; 2020-07-31 14:00)
DX: K35.33 Acute appendicitis with perforation, localized peritonitis, and gangrene, with abscess (principal); K56.0 Paralytic ileus; E22.2 Syndrome of inappropriate secretion of antidiuretic hormone; R33.9 Retention of urine, unspecified; R13.12 Dysphagia, oropharyngeal phase; K22.5 Diverticulum of esophagus, acquired; I10 Essential (primary) hypertension; F41.9 Anxiety disorder, unspecified; F17.210 Nicotine dependence, cigarettes, uncomplicated; Z85.3 Personal history of malignant neoplasm of breast; Z90.710 Acquired absence of both cervix and uterus
CPT/HCPCS: 36415; 51701; 71045; 74177; 74220; 80048; 80053; 81001; 82436; 82533; 82570; 83690; 83883; 83930; 83935; 84155; 84156; 84165; 84166; 84300; 84443; 85025; 85027; 88304; 96361; 96365; 96366; 96372; 96375; 96376; 99285; A9270; G0378; J0131; J0330; J1100; J1650; J2270; J2405; J2543; J2704; J2710; J3010; J7030; J7120; Q9967

== ENCOUNTER 2021-02-23 20:01 | Emergency (ER) | payer MEDICARE, SELFPAY ==
--- NOTE | ~2021-02-23 | CT_ITS ---
EXAMINATION: CT soft tissue neck w con EXAM DATE: 02/23/2021 21:40 INDICATION: Dysphagia, sore throat. Voice change. TECHNIQUE: Spiral CT of the neck was performed following intravenous injection of 75 mL Omnipaque 350 . Axial, coronal and sagittal images were reviewed. The dose-length product (DLP) for this examinat ion was 296.38 mGy-cm. The exposure was tailored according to patient size (auto mA exposure control ), and iterative reconstruction (ASIR) was used as additional dose reduction technique. There is no prior study for comparison. FINDINGS: The thyroid gland is unremarkable. The submandibular and parotid glands are symmetric. There is no cervical lymphadenopathy. There are no masses identified. The superior mediastinum is unremarkable. The airway is unremarkable., Epiglottis normal in thickness Parapharyngeal and pre- glottic fat planes are preserved. The opacified vasculature is patent. The orbits are unremarkabl e. Mild ethmoid and maxillary mucoperiosteal thickening. Lung apices are clear. Mild emphysema. Th ere is advanced right facet arthropathy C3-4 and C4-5. There is moderate lower cervical disc disease. IMPRESSION: Unremarkable epiglottis, airway. No acute findings. Reviewed, dictated and finalized at location A.
[2021-02-23 20:06] VITALS: BP 182/79; PULSE 69; RESP 18; TEMP 36.3; O2SAT 98
[2021-02-23 20:16] VITALS: BP 153/82; PULSE 70; RESP 18; TEMP 36.6; O2SAT 98
--- NOTE | 2021-02-23 20:31 | ED.GENADULT ---
HPI - General Adult General Chief complaint: Unspecified Stated complaint: mouth swelling Time Seen by Provider: 02/23/21 20:11 Source: patient Mode of arrival: ambulatory Limitations: no limitations History of Present Illness HPI narrative: Patient is a 80-year-old female complaining of sudden onset of throat swelling after doing gardening work, weeding, in her backyard earlier this morning. Patient states that took a nap and woke up with her throat being swollen. Patient denies any neck swelling, shortness of breath, fever or chills. Patient speaking in complete sentences, no drooling. Related Data Home Medications Medication Instructions Recorded Confirmed Bystolic 10 mg PO DAILY 07/31/20 08/18/20 amlodipine 10 mg PO DAILY 07/31/20 08/18/20 lisinopril 40 mg PO DAILY 07/31/20 08/18/20 Allergies Allergy/AdvReac Type Severity Reaction Status Date / Time No Known Allergies Allergy Verified 02/23/21 20:11 Review of Systems Review of Systems: All systems reviewed & are unremarkable except as noted in HPI and below Constitutional: Constitutional: Denies body ache(s), Denies chills, Denies excessive sweating, Denies fatigue, Denies fever(s), Denies headache(s), Denies lethargy, Denies malaise, Denies weakness and Denies weight loss Eyes: Eyes: Denies blurry vision, Denies change in vision and Denies loss of vision ENT: Denies dizziness, Denies ear discharge, Denies headache(s), Denies lip swelling, Denies epistaxis, Denies nasal congestion, Denies neck pain and Denies tongue swelling Cardiovascular: Cardiovascular: Denies chest pain, Denies chest pain at rest, Denies chest pain with activity, Denies diaphoresis, Denies rapid heart rate, Denies edema, Denies irregular heart rhythm, Denies lightheadedness, Denies palpitations, Denies dyspnea and Denies dyspnea on exertion Respiratory: Respiratory: Denies chest congestion, Denies cough, Denies hemoptysis, Denies dyspnea and Denies dyspnea on exertion Gastrointestinal: Gastrointestinal: Denies abdominal pain, Denies melena, Denies hematochezia, Denies diarrhea, Denies nausea, Denies vomiting and Denies hematemesis Musculoskeletal: Musculoskeletal: Denies abnormal gait, Denies deformity, Denies joint swelling, Denies limited range of motion, Denies neck pain and Denies numbness Neurologic: Denies Abnormal speech present, Denies abnormal gait, Denies confusion, Denies dizziness, Denies headache(s), Denies focal weakness, Denies loss of vision, Denies numbness, Denies Other visual disturbances, Denies Sensory deficit (Neuro) and Denies weakness Psychiatric: Psychiatric: Denies confusion, Denies depression, Denies auditory hallucinations, Denies homicidal ideation and Denies suicidal ideation Endocrine: Endocrine: Denies cold intolerance, Denies excessive sweating, Denies fatigue, Denies heat intolerance and Denies palpitations Hematologic/Lymphatic: Hematologic/Lymphatic: Denies easy bleeding and Denies easy bruising Allergic/Immunologic: Allergic/Immunologic: Denies lip swelling, Denies throat swelling and Denies tongue swelling PMFSH Past Medical History Medical History Anxiety Back pain Breast cancer HTN (hypertension) Surgical History Surgical History History of hysterectomy History of laparoscopic appendectomy 07/31/2020 Status post left mastectomy Family History Family History Father Hypertension Mother No problems noted. 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 and lives alone Two children living and well who live in the area Smoking packs per day: 0.5 Smoking cigarettes per day: 10.0 Smoking status: Never smoker Tobacco type: cigarettes
[2021-02-23] MEDS: DEXAMETHASONE SOD PHOS INJ 4 MG/ML VIAL 10 MG IV PUSH (20:36)
[2021-02-23 20:46] LABS: Basophils Absolute Auto 0.1 K/mm3 (0.0-0.1); Basophils Percent Auto 0.6 % (0.2-1.2); Eosinophils Absolute Auto 0.6 K/mm3 (0-0.3); Eosinophils Percent Auto 7.1 % (0-4.4); Hematocrit 43.2 % (37.0-47.0); Hemoglobin 14.4 g/dL (12.0-15.0); Immature Granulocyte Absolute 0.02 K/mm3 (0.00-0.031); Immature Granulocyte Percent A 0.3 % (0-0.5); Lymphocytes Absolute Auto 1.83 K/mm3 (0.9-3.2); Lymphocytes Percent Auto 23.1 % (18.3-44.2); Mean Corpuscular HGB Conc 33.3 g/dl (32-36); Mean Corpuscular Hemoglobin 28.4 pg (26-34); Mean Corpuscular Volume 85.2 fl (80-100); Mean Platelet Volume 8.6 fl (7.4-10.4); Monocytes Absolute Auto 0.6 K/mm3 (0.1-0.6); Monocytes Percent Auto 7.2 % (2.6-8.5); Neutrophils Absolute Auto 4.9 K/mm3 (1.3-6.7); Neutrophils Percent Auto 61.7 % (45.5-73.1); Platelet Count Result 275 k/mm3 (150-375); Red Blood Count 5.07 M/mm3 (4.2-5.4); Red Cell Distribution Width 13.1 % (11.5-14.5); White Blood Count 7.9 K/mm3 (4.5-10.0)
[2021-02-23 20:56] LABS: Anion Gap 11 mmol/L (8-16); Blood Urea Nitrogen 14 mg/dL (7-17); Calcium 9.7 mg/dL (8.4-10.2); Carbon Dioxide 24 mmol/L (22-30); Chloride 103 mmol/L (98-107); Estimated CRCL calculation 67 ml/min; Estimated Glomerular Filt Rate > 60; Glucose 99 mg/dL (65-105); Sodium 138 mmol/L (137-145)
[2021-02-23] MEDS: diphenhydrAMINE HCl INJ 50 MG/ML VIAL 25 MG IV PUSH (21:08)
[2021-02-23] MEDS: FAMOTIDINE 20 MG/2 ML VIAL IV PUSH (21:10)
[2021-02-23 21:15] VITALS: BP 144/98; PULSE 61; RESP 18; O2SAT 98
--- NOTE | 2021-02-23 21:26 | PC.NURSE ---
Pt to CT via stretcher at this time.
[2021-02-23] MEDS: LACTATED RINGERS 1,000 ML 999 ML IV CONT (21:51)
[2021-02-23 23:21] VITALS: BP 162/70; PULSE 71; RESP 16; O2SAT 95
== END 2021-02-23 23:21 | disposition home or self-care (01) ==
PROVIDERS: Emergency Provider Emergency Medicine; PCP Internal Medicine
DX: T78.40XA Allergy, unspecified, initial encounter (principal); Z85.3 Personal history of malignant neoplasm of breast; Z90.12 Acquired absence of left breast and nipple; I10 Essential (primary) hypertension
CPT/HCPCS: 36415; 70491; 80048; 85025; 96361; 96374; 96375; 99284; J1100; J1200; J7120; Q9967

== ENCOUNTER 2021-08-16 08:56 | Outpatient (CLI) | payer MEDICARE, SELFPAY ==
--- NOTE | ~2021-08-16 | MM_ITS ---
EXAMINATION: MM screening cammy RT w rojelio HISTORY: Screening right mammogram, history of left mastectomy TECHNIQUE: Craniocaudal and mediolateral oblique 3-D tomosynthesis images were obtained and synthetic 2-D images were generated. CAD analysis was submitted and interpreted. COMPARISON: 07/08/2020, 06/18/2019, 06/07/2018 BREAST PARENCHYMAL COMPOSITION: The breast is heterogeneously dense, which may obscure small masses. FINDINGS: Scattered benign-appearing calcifications are present. There is no evidence of suspicious m ass, calcification, or architectural distortion to suggest malignancy. There has been no suspicious i nterval change. IMPRESSION: 1. No mammographic evidence of malignancy. 2. Recommend routine screening mammography in one year. BI-RADS Category 2: Benign finding(s). Reviewed, dictated and finalized at location A. 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
== END 2021-08-16 08:57 | disposition home or self-care (01) ==
PROVIDERS: PCP Internal Medicine; Visit Provider Internal Medicine Medical Oncology
DX: Z12.31 Encounter for screening mammogram for malignant neoplasm of breast (principal)
CPT/HCPCS: 77063; 77067

== ENCOUNTER 2022-10-12 16:02 | Outpatient (CLI) | payer MEDICARE, SELFPAY ==
--- NOTE | ~2022-10-12 | MM_ITS ---
EXAMINATION: MM screening cammy RT w rojelio HISTORY: Screening mammogram TECHNIQUE: Craniocaudal and mediolateral oblique 3-D tomosynthesis images were obtained and synthetic 2-D images were generated. CAD analysis was submitted and interpreted. COMPARISON: 08/16/2021, 07/08/2020, 06/18/2019 right screening mammogram examinations BREAST PARENCHYMAL COMPOSITION: The breasts are heterogeneously dense, which may obscure small masses . FINDINGS: Status post left mastectomy for breast cancer. Scattered benign right breast calcifications. There is no evidence of suspicious mass, calcification, or architectural distortion to suggest malignancy in either breast. There has been no suspicious int erval change. IMPRESSION: 1. No mammographic evidence of malignancy. 2. Recommend routine screening mammography in one year. BI-RADS Category 2: Benign finding(s). 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
== END 2022-10-12 16:03 | disposition home or self-care (01) ==
LOC: ANHIMG 16:03
PROVIDERS: PCP Internal Medicine; Visit Provider Internal Medicine Medical Oncology
DX: Z12.31 Encounter for screening mammogram for malignant neoplasm of breast (principal)
CPT/HCPCS: 77063; 77067

== ENCOUNTER 2023-12-01 09:08 | Outpatient (CLI) | payer MEDICARE, SELFPAY ==
--- NOTE | ~2023-12-01 | MM_ITS ---
EXAMINATION: MM screening cammy RT w rojelio HISTORY: Screening mammogram TECHNIQUE: Craniocaudal and mediolateral oblique 3-D tomosynthesis images were obtained and synthetic 2-D images were generated. CAD analysis was submitted and interpreted. COMPARISON: October 12, 2022, August 16, 2021 right screening mammogram examinations BREAST PARENCHYMAL COMPOSITION: The breasts are heterogeneously dense, which may obscure small masses . FINDINGS: Status post left mastectomy for breast cancer. Multiple scattered right benign-appearing breast calcifications. There is no evidence of suspicious mass, calcification, or architectural distortion to suggest malign gerardo in either breast. There has been no suspicious interval change. IMPRESSION: 1. Status post left mastectomy for breast cancer. No mammographic evidence of malignancy. 2. Recommend routine screening mammography in one year. BI-RADS Category 2: Benign finding(s). Reviewed, dictated and finalized at location B. IMPRESSION: 1. Status post left mastectomy for breast cancer. No mammographic evidence of m alignancy. 2. Recommend routine screening mammography in one year. BI-RADS Category 2: Benign finding(s).
--- NOTE | ~2023-12-01 | DEXA_ITS ---
Bone Density Report Name: NIKIA CROWDER Age: 83 Sex: Female Ethnicity: White Date of : 1940 Indication: postmenopausal; screening for osteoporosis; height loss; cancer; hysterectomy; Referring Provider: LISSETTE HEAD I. Study: Bone densitometry was performed. Exam Date: December 01, 2023 Accession number: [id number] Bone Density: Region BMD T-score Z-score Classification AP Spine(L1-L4) 0.796 -2.3 0.5 Osteopenia Femoral Neck (Left) 0.595 -2.3 0.1 Osteopenia Total Hip (Left) 0.724 -1.8 0.4 Osteopenia Femoral Neck (Right) 0.532 -2.9 -0.5 Osteoporosis Total Hip (Right) 0.671 -2.2 -0.1 Osteopenia Total Hip Mean 0.697 -2.0 0.2 Osteopenia World Health Organization criteria for BMD impression classify patients as: Normal (T-score at or above -1.0), Osteopenia (T-score between -1.0 and -2.5), or Osteoporosis (T-score at or below -2.5). 10-year Fracture Risk: FRAX not reported because: Some T-score for Spine Total or Hip Total or Femoral Neck at or below -2.5 Clinical Information Provided by Patient: Smokes Has used the following medications: Vitamin D, Calcium Has the following medical conditions: Cancer, Hysterectomy Patient maximum height was 64 Menopause Age: 60 No regular weight bearing exercise Drinks caffeinated beverages Onset of menses at age 16 Number of children 2 Missed period for more than 6 months in a row Impression: The patient has osteoporosis, based on the Right Femoral Neck T-score. The patient has risk factors, including: smoking. Discussion: INCREASED RISK OF FRACTURE. BONE DENSITY IS UNDESIRABLY LOW AT ONE OR MORE SKELETAL SITES, CONSISTENT WITH POSTMENOPAUSAL OSTEOPOROSIS. This patient's lowest T-score meets the World Health Organization's (WHO) criteria for osteoporosis at one or more sites (T-score -2.5 or below). In untreated patients, the risk of osteoporotic fracture increases approximately two-fold for each 1.0 SD decrease in T-score. Low bone density is not the only risk factor for fracture; also consider factors such as patient's age, frailty or poor health, risk of falling, risk of injury, previous osteoporotic fracture, family history of osteoporosis, cigarette smoking, low body weight, etc. Not everyone with low bone mineral density has osteoporosis; osteomalacia and other metabolic bone disorders should also be considered. Patients who have osteoporosis should be evaluated for specific diseases and conditions (secondary causes) that may cause or contribute to bone loss. The [place] [employer]ocrinologists (AACE) and National Osteoporosis Foundation (NOF) recommend pharmacologic intervention for all postmenopausal women whose T-score is in this range. The patient should follow a healthful lifestyle (good nutrition with adequate calcium a
== END 2023-12-01 09:09 | disposition home or self-care (01) ==
PROVIDERS: PCP Physician Assistant Medical; Visit Provider Physician Assistant Medical
DX: Z12.31 Encounter for screening mammogram for malignant neoplasm of breast (principal); E28.39 Other primary ovarian failure; C50.919 Malignant neoplasm of unspecified site of unspecified female breast; Z90.12 Acquired absence of left breast and nipple
CPT/HCPCS: 77063; 77067; 77080

== ENCOUNTER 2025-06-15 15:14 | Outpatient (CLI) | payer MEDICARE, SELFPAY ==
--- NOTE | ~2025-06-15 | MM_ITS ---
EXAMINATION: MM screening cammy RT w rojelio INDICATION: Asymptomatic, referred for screening mammogram. History of Left mastectomy 2013. COMPARISON: 12/01/2023 through 06/18/2019 TECHNIQUE: Full field digital CC, MLO views were obtained of RIGHT breast with computer-aided detection to assist in interpretation of the study. FINDINGS: The breasts are heterogeneously dense, which may obscure small masses. No focal dominant mass, architectural distortion, or suspicious microcalcifications are identified. Benign-appearing calcifications diffusely scattered in the breast parenchyma are unchanged. There are no features to suggest malignancy. IMPRESSION: 1. No mammographic evidence of malignancy. 2. Recommend routine screening mammography in one year. BI-RADS Category 2: Benign finding(s). Reviewed, dictated and finalized at location B.
--- OUTSIDE RECORDS SUMMARY | 2025-06-15 17:53 | XMS_ITS | Clinical Summary ---
Author Organization [facility] Address [address] [place] [id number] Care Team Providers Care Dental Scheduling Coordinator Name Role Phone Bennett Palacios MD Primary Care Provider [phone] Diaz Su MD, Ken Unavailable [phone] Allergies Active Allergy Reactions Criticality Noted Date Comments Iodinated Contrast Media Unknown,Angioedema,Anxiety High 01/01/2014 Medications amLODIPine (NORVASC) 10 mg tablet 04/13/2018 Active lisinopril (PRINIVIL,ZESTRI L) 40 mg tablet 04/13/2018 Act juan BYSTOLIC 10 mg tablet 03/16/2018 Active aspirin 81 mg tablet Take 81 mg by mouth daily. Active cholecalciferol, vitamin D3, (VITAMIN D3 ORAL) Take by mouth. Active calcium carbonate/vitami n D3 (CALCIUM 600 + D,3, ORAL) Take by mouth. Active vit C/E/Zn/coppr/lut ein/zeaxan (PRESERVISION AREDS-2 ORAL) Take by mouth. 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, estrogen receptor positive 05/07/2018 Immunizations Immunization Administration Dates Next Due Influenza, Quadrivalent, Hig h Dose, Preservative Free, Intrr 05/12/2020 Influenza, Trivalent, High D ose, Split, Preservative Free, Intramuscular 06/14/2019,06/06/2018,07/03/2017 Influenza, Unspecified 04/11/2017,2015,01/26/2015,04/07 Pfizer SARS-CoV-2 Monovalent Vaccination (12+ Yrs) PURPLE 11/14/2020,10/24/2020 Pneumococcal Conjugate PCV 13 09/26/2018 Pneumococcal Polysaccharide PPV23 02/10/2020 ZOSTER LIVE 04/11/2017,03/23/2016 Surgical History Surgery Date Site/Laterality Comments COLONOSCOPY BREAST LUMPECTOMY BREAST BIOPSY APPENDECTOMY 08/27/2020 - 08/26/2021 Medical History Medical History Date Comments Breast cancer (HCC) Social History Tobacco Use Types Packs/Day Years Used Date Smoking Tobacco: Every Day Cigarettes Smokeless Tobacco: Never Tobacco Cessation:Ready to Q uit: Yes Alcohol Use Standard Drinks/Week Comments No 0 (1 standard drink = 0.6 oz pur e alcohol) Personal Safety Answer Date Recorded Getting School Help Needed Not on file 11/10 Comments Unknown Sex and Gender Information Value Date Recorded Sex Assigned at Not on file 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 Gender Identity Not on file Sexual Orientation Not on file Obstetrics History Last Filed Vital Signs Vital Sign Reading Time Taken Comments Blood Pressure 151/73 06/01/2022 11:11 AM CDT Pulse 64 06/01/2022 11:11 AM CDT Temperature 36.7 C (98.1 F) 06/01/2022 11:11 AM CDT Respiratory Rate 18 06/01/2022 11:1 1 AM CDT Oxygen Saturation 97% 06/01/2022 11: 11 AM CDT Inhaled Oxygen Concentration - - Weight 61.9 kg (136 lb 6.4 oz) 06/01/20 22 11:11 AM CDT with shoes Height 161.3 cm (5' 3.5) 06/01/2022 11 :11 AM CDT Body Mass Index 23.78 06/01/2022 11:11 AM CDT Plan of Treatment Health Maintenance Due Date Last Done Comments Depression Screening 1940 Fall Risk Assessment 1940 Osteoporosis Screening-Bone Density Scan 1940 DTaP/Tdap/Td Vaccine (1 - Tdap) 1953 Hepatitis B Screening 1960 Well Visit 65+ 2007 Zoster Vaccine (2 of 3) 06/06/2017 04/11/2017, 03/23 Covid-19 Vaccine (3 - 2024-2 6 season) 2025 11/14/2020, 10/24/2020 Influenza Vaccine (#1) 2025 0, 06/14/2019, 06/06/2018, Additional history exists Pneumococcal vaccine 65+ Completed 02/10/2020, 08/29 Insurance [facility] Address: [address] [address] [place] [address] [facility] Address: [address] [address] [place] [address] Care Teams Dental Scheduling Coordinator Relationship Specialty Start Date End Date Bennett Palacios MD [address] [place] [id number] PCP - General 11/28/17 Ken Perales Jr., MD [address] [place] [id number] Medical Oncologist/Salon Receptionist Medical Oncology 05/27/20
--- OUTSIDE RECORDS SUMMARY | 2025-06-15 17:53 | XMS_ITS | Clinical Summary ---
Author Organization [facility] Address [facility] [place] [address] Care Team Providers Care Fitter Helper Name Role Phone Unavailable Primary Care Provider Unavailabl e Social History Tobacco Use Types Packs/Day Years Used Date Smoking Tobacco: Never Assessed Comments Unknown Sex and Gender Information Value Date Recorded Sex Assigned at Not on file Legal Sex Female 11:15 PM CDT Gender Identity Not on file Sexual Orientation Not on file Plan of Treatment Health Maintenance Due Date Last Done Comments DTaP, Tdap and Td Vaccines ( 1 - Tdap) 1961 Pneumococcal Vaccine: 50+ Ye ars (1 of 1 - PCV) 1992 Zoster Vaccines (1 of 2) 1992 Dexa Scan (General) 2007 RSV Immunization or 60+ Years (1 - 1-dose 75+ series) 2017 COVID-19 Vaccine (2023-2 5 season) 2025 Influenza Adult (#1) 2025 Hepatitis A Vaccines Aged Out No long er eligible based on patient's age to complete this topic Meningococcal B Vaccine Aged Out No l onger eligible based on patient's age to complete this topic Meningococcal Vaccine Aged Out No hong jaime eligible based on patient's age to complete this topic RSV Immunizations Under 20 Months Aged Out No longer eligible based on patient's age to complete this topic
== END 2025-06-15 15:15 | disposition home or self-care (01) ==
LOC: ANHFOHIMG 15:16
PROVIDERS: PCP Physician Assistant Medical; Visit Provider Physician Assistant Medical
DX: Z12.31 Encounter for screening mammogram for malignant neoplasm of breast (principal)
CPT/HCPCS: 77063; 77067